=== PATIENT | female | born 1955 | race Caucasian/White ===

== ENCOUNTER → 2017-08-27 15:53 | Outpatient (CLI) | payer OTHER, SELFPAY ==
--- NOTE | 2017-08-27 15:55 | BI_ITS ---
MAMMOGRAPHY - BILATERAL SCREENING REASON FOR EXAM: Female, 61 years old. Routine annual screening examination. PERTINENT HISTORY: Non-contributory. TECHNIQUE: Digital bilateral breast hiren (3D mammographic acquisition) in the CC and MLO projections. 2-D mediolateral oblique (MLO) and craniocaudad (CC) views of both breasts were obtained. CAD: Full Field Digital Mammography with Computer Added Detection was performed. COMPARISON: Comparison is made with prior study dated August 21, 2016 and August 16, 2015. FINDINGS: Breast Composition: The breasts are extremely dense, which lowers the sensitivity of mammography. There are no dominant masses or suspicious calcifications. No other significant abnormalities are identified. There has been no significant change since the prior study. BI/SCREENING MAMM (CAD), BILAT IMPRESSION: Stable bilateral screening mammogram. Yearly follow-up mammogram recommended. (A) ASSESSMENT CATEGORY: BIRADS Category 1: Negative. A letter regarding these results will be sent to the patient by the facility within 30 days. Approximately 10% of breast cancers are not detected by mammography. A normal mammogram should not delay biopsy of a clinically suspicious abnormality. [id number] Electronically Signed: Yan Mata MD at 9:02 EDT Tel [phone], Service support ,
== END ==
PROVIDERS: Family Provider Family Medicine; PCP Family Medicine; Visit Provider Family Medicine
DX: Z12.31 Encounter for screening mammogram for malignant neoplasm of breast (principal)
CPT/HCPCS: 77063; 77067

== ENCOUNTER → 2018-09-19 | Outpatient (CLI) | payer OTHER, SELFPAY ==
[2014-09-07 08:16] VITALS: BMI 17.4
--- NOTE | 2018-09-19 12:03 | BI_ITS ---
MAMMOGRAPHY - BILATERAL SCREENING REASON FOR EXAM: Female, 62 years old. Routine annual screening examination. PERTINENT HISTORY: Non-contributory. TECHNIQUE: Digital bilateral breast hiren (3D mammographic acquisition) in the CC and MLO projections. 2-D mediolateral oblique (MLO) and craniocaudad (CC) views of both breasts were obtained. CAD: Full Field Digital Mammography with Computer Added Detection was performed. COMPARISON: Comparison is made with prior examination dated August 27, 2017 and August 21, 2016. FINDINGS: Breast Composition: The breasts are extremely dense, which lowers the sensitivity of mammography. There are no dominant masses or suspicious calcifications. No other significant abnormalities are identified. There has been no significant change since the prior study. BI/SCREENING MAMM (CAD), BILAT IMPRESSION: Stable bilateral screening mammogram. Yearly follow-up mammogram recommended. (A) ASSESSMENT CATEGORY: BIRADS Category 1: Negative. A letter regarding these results will be sent to the patient by the facility within 30 days. Approximately 10% of breast cancers are not detected by mammography. A normal mammogram should not delay biopsy of a clinically suspicious abnormality. [id number] Electronically Signed: Yan Mata, at 13:49 EDT , Service support ,
== END | disposition home or self-care (01) ==
LOC: OPBI 12:01
PROVIDERS: Family Provider Family Medicine; PCP Family Medicine; Referring Provider Family Medicine; Visit Provider Family Medicine
DX: Z12.31 Encounter for screening mammogram for malignant neoplasm of breast (principal)
CPT/HCPCS: 77063; 77067

== ENCOUNTER → 2018-10-01 | Outpatient (CLI) | payer OTHER, SELFPAY ==
[2014-09-07 08:16] VITALS: BMI 17.4
--- NOTE | 2018-10-01 13:59 | BD_ITS ---
STUDY: DUAL ENERGY X-RAY ABSORPTIOMETRY / DXA REASON FOR EXAM: Female, 62 years old. The patient is postmenopausal. Loss of height. TECHNIQUE: Bone Mineral Density (BMD) measurements of lumbar spine and bilateral hips were obtained. COMPARISON: Comparison is made with prior examination dated February 17, 2016. FINDINGS: Lumbar Spine (L1-L4): g/cm2 (0.849) / T-score (-2.8) / Z-score (-1.5) Findings are suggestive of osteoporosis with a high fracture risk. Left Femur Total: g/cm2 (0.714) / T-score (-2.3) / Z-score (-1.4) Left Femoral Neck: g/cm2 (0.758) / T-score (-2.0) / Z-score (-0.7) Right Femur Total: g/cm2 (0.692) / T-score (-2.5) / Z-score (-1.5) Right Femoral Neck: g/cm2 (0.7-1) / T-score (-2.3) / Z-score (-1.0) The T-Scores on the most recent prior examination were: Lumbar Spine (L1-L4): There has been worsening of bone density since the previous examination. Left Femur Total: which represents a worsening of 5.3%. Right Femur Total: which represents a worsening of 6.6%. BD/Dexa Bone Density Study IMPRESSION: The patient is considered osteoporotic as outlined below according to World Martin Organization (WHO) criteria with a high fracture risk. There has been worsening of bone density since the previous examination. Reference Information: The T-score is the number of standard deviations above or below the standard which is normal for young adults at their peak bone mineral density. The World Health Organization (WHO) interprets the T-scores as follows: Above -1 Normal bone density Between -1 and -2.5 Osteopenia Equal to / or below -2.5 Osteoporosis As a practical clinical guideline, osteopenia may be graded as follows: Mild -1 through -1.5 Moderate -1.6 through -2.0 Severe -2.1 through -2.4 The Z-score is the number of standard deviations above or below age-matched controls. A Z-score of less than -1.5 would be considered abnormal. References: 1. NIH Osteoporosis and Related Bone Diseases http://www.osteo.org 2. International Society for Clinical Densitometry http://www.iscd.org 3. National Osteoporosis Foundation http://www.nof.org Electronically Signed: Yan Mata, at 12:55 EDT , Service support ,
== END | disposition home or self-care (01) ==
LOC: OPBD 13:58
PROVIDERS: Family Provider Family Medicine; PCP Family Medicine; Referring Provider Family Medicine; Visit Provider Family Medicine
DX: M85.80 Other specified disorders of bone density and structure, unspecified site (principal)
CPT/HCPCS: 77080

== ENCOUNTER → 2018-12-02 10:27 | Outpatient (CLI) | payer OTHER, SELFPAY ==
[2014-09-07 08:16] VITALS: BMI 17.4
[2018-12-02 12:32] LABS: Absolute Lymphocyte Count 0.95 X10^3/uL (0.83-4.51); Absolute Neutrophil Count 1.9 X10^3/uL (2.0-7.7); Basophil# 0.05 X10^3/uL; Basophil% 1.5 % (0-1); Eosinophil# 0.11 X10^3/uL; Eosinophils% 3.2 % (0-5); Hematocrit 40.8 % (37-47); Hemoglobin 13.3 g/dL (12.0-15.0); Lymphocyte # 0.95 X10^3/ul (4.0); Lymphocyte % 27.9 % (19-41); Mean Corp Hgb Conc 32.6 g/dL (32-36); Mean Corpuscular Hgb 30.8 pg (27.0-32.0); Mean Corpuscular Volume 94.4 fL (81-99); Mean Platelet Vol. 13.8 fl (6.2-12.0); Monocyte# 0.39 X10^3/uL; Monocyte% 11.4 % (0-10); NRBC Flagged by Analyzer 0 % (0-5); Neutrophil % 55.7 % (47-70); Platelet Count 188 K/mm3 (150-450); RBC Distribution Width CV 12.5 % (11.6-14.6); RBC Distribution Width SD 43.8 fl (35.1-43.9); Red Blood Count 4.32 M/mm3 (4.2-5.4); White Blood Count 3.4 K/mm3 (4.4-11.0)
[2018-12-02 12:53] LABS: ALB/GLOB Ratio 1.1 RATIO (0.9-2.4); AST(SGOT) 29 U/L (15-37); Alanine Aminotransfer ALT/SGPT 65 U/L (13-56); Albumin, Serum 3.9 g/dL (3.2-5.0); Alkaline Phosphatase 77 U/L (45-117); Anion Gap 7 (5-15); BUN 14 mg/dL (7-18); BUN/Creat Ratio 15.6 RATIO (10-20); Calcium,Total 8.7 mg/dL (8.5-10.1); Chloride 108 mmol/L (98-107); Cholesterol 166 mg/dL (200); EST Glomerular Filtration Rate 68 mL/min (>60); Est Glom Filt Rate - Afr Amer 82 mL/min (>60); Globulin 3.4 g/dL (2.2-4.2); Glucose 80 mg/dL (74-106); High Density Lipoprotein 83 mg/dL; Protein, Total 7.3 g/dL (6.4-8.2); Sodium Level 141 mmol/L (136-145); Triglycerides 56 mg/dL; Very Low Density Lipoprotein 11 mg/dL (5-40)
== END ==
PROVIDERS: PCP Family Medicine; Visit Provider Family Medicine
DX: Z00.01 Encounter for general adult medical examination with abnormal findings (principal)
CPT/HCPCS: 36415; 80053; 80061; 85025

== ENCOUNTER 2019-09-22 14:40 | Outpatient (CLI) | payer OTHER, SELFPAY ==
[2014-09-07 08:16] VITALS: BMI 17.4
--- NOTE | 2019-09-22 14:43 | BI_ITS ---
MAMMOGRAPHY - BILATERAL SCREENING REASON FOR EXAM: Female, 63 years old. Routine annual screening examination. PERTINENT HISTORY: Non-contributory. TECHNIQUE: Digital bilateral breast ludy (3D mammographic acquisition) in the CC and MLO projections. 2-D mediolateral oblique (MLO) and craniocaudad (CC) views of both breasts were obtained. CAD: Full Field Digital Mammography with Computer Added Detection was performed. COMPARISON: Comparison is made with prior examination dated September 19, 2018. FINDINGS: Breast Composition: The breasts are extremely dense, which lowers the sensitivity of mammography. There are no dominant masses or suspicious calcifications. No other significant abnormalities are identified. There has been no significant change since the prior study. BI/SCREEN MAMM (CAD) W/LUDY BILAT IMPRESSION: Stable bilateral screening mammogram. Yearly follow-up mammogram recommended. (A) ASSESSMENT CATEGORY: BIRADS Category 1: Negative. A letter regarding these results will be sent to the patient by the facility within 30 days. Approximately 10% of breast cancers are not detected by mammography. A normal mammogram should not delay biopsy of a clinically suspicious abnormality. [id number] Electronically Signed: Yan Mata, at 15:30 EDT , Service support ,
[2019-09-22 15:16] LABS: Absolute Lymphocyte Count 0.96 X10^3/uL (0.83-4.51); Absolute Neutrophil Count 3.1 X10^3/uL (2.0-7.7); Basophil# 0.05 X10^3/uL; Eosinophil# 0.16 X10^3/uL; Eosinophils% 3.3 % (0-5); Hematocrit 42.4 % (37-47); Hemoglobin 13.6 g/dL (12.0-15.0); Lymphocyte # 0.96 X10^3/ul (4.0); Lymphocyte % 20.1 % (19-41); Mean Corp Hgb Conc 32.1 g/dL (32-36); Mean Corpuscular Hgb 30.8 pg (27.0-32.0); Mean Corpuscular Volume 95.9 fL (81-99); Mean Platelet Vol. 13.3 fl (6.2-12.0); Monocyte% 10.5 % (0-10); NRBC Flagged by Analyzer 0 % (0-5); Neutrophil % 64.9 % (47-70); POSITIVE MORPHOLOGY YES; Platelet Count 182 K/mm3 (150-450); RBC Distribution Width CV 12.5 % (11.6-14.6); RBC Distribution Width SD 44.3 fl (35.1-43.9); Red Blood Count 4.42 M/mm3 (4.2-5.4); White Blood Count 4.8 K/mm3 (4.4-11.0)
[2019-09-22 15:21] LABS: Differential Indicated SCAN CRITERIA MET
[2019-09-22 15:53] LABS: Platelet Estimate ADEQUATE (ADEQ); Red Cell Morphology NORM C+C NORMAL (NORM C&C)
[2019-09-22 15:57] LABS: AST(SGOT) 22 U/L (15-37); Alanine Aminotransfer ALT/SGPT 39 U/L (13-56); Alkaline Phosphatase 65 U/L (45-117); Bilirubin, Direct 0.12 mg/dL (0.00-0.30); Globulin 3.7 g/dL (2.2-4.2); Protein, Total 7.7 g/dL (6.4-8.2)
== END 2019-09-22 19:00 | disposition home or self-care (01) ==
PROVIDERS: PCP Family Medicine; Referring Provider Family Medicine; Visit Provider Family Medicine
DX: D72.819 Decreased white blood cell count, unspecified (principal); R74.8 Abnormal levels of other serum enzymes; Z12.31 Encounter for screening mammogram for malignant neoplasm of breast
CPT/HCPCS: 36415; 77063; 77067; 80076; 85025

== ENCOUNTER → 2019-12-08 | Outpatient (CLI) | payer OTHER, SELFPAY ==
[2014-09-07 08:16] VITALS: BMI 17.4
--- NOTE | 2019-12-08 15:10 | RAD_ITS ---
STUDY: X-RAY - LEFT HAND REASON FOR EXAM: Female, 64 years old. RECENT FALL, PAIN 1ST MC JOINT INTO WHOLE 1ST DIGIT AND LATERAL CARPALS TECHNIQUE: 3 view(s) of the hand. COMPARISON: None. FINDINGS: Normal radiocarpal articulation. Normal distal radioulnar joint. Normal visualized carpal bones. Normal carpal articulations Normal carpometacarpal articulation of the thumb. Normal second through fifth carpometacarpal joints. Normal metacarpi. Normal metacarpophalangeal joint of the thumb. Normal interphalangeal joint of the thumb. Normal proximal and distal phalanges of the thumb. Normal metacarpophalangeal joints of the second through fifth fingers. Normal proximal and distal interphalangeal joints of the second through fifth fingers. Normal phalanges of the second through fifth fingers. The soft tissue structures are unremarkable. RAD/Hand Min 3 Views IMPRESSION: Normal x-ray examination of the hand. Electronically Signed: Efren Frank MD at 15:56 EDT , Service support ,
== END | disposition home or self-care (01) ==
LOC: RAD 15:07
PROVIDERS: PCP Family Medicine; Referring Provider Family Medicine; Visit Provider Family Medicine
DX: M79.645 Pain in left finger(s) (principal); M81.0 Age-related osteoporosis without current pathological fracture; W19.XXXA Unspecified fall, initial encounter
CPT/HCPCS: 73130

== ENCOUNTER 2019-12-19 08:48 | Outpatient (RCR) | payer OTHER, SELFPAY ==
--- NOTE | 2019-12-19 10:19 | HP.OTEVAL_ITS ---
Patient's Visit Information PIETER TOLLIVER is a 64 year old F, referred to Occupational Therapy by Dr. Anna Norton MD, with a diagnosis of left thumb pain. Date of Evaluation: 12/19/19 Occupational Therapist: Maddy Bernardo, ALBERTAR/Morgan, CHT - Subjective This 64 year old female was seen for OT eval with dx of left thumb pain. pt states she had fallen in October and has had thumb pain since. pt states she noticed pain with daily occupations and this has limited her with her ADLs and IADLs. pt states she had x-rays and no fx was found - Pain left thumb 1 Pain Intensity Range: 1, 2 - ROM CMC: right 10 left 15 MP: right 50 left 60 IP: right 60 left 90 Radial Abduction: right 45 left 40 Opposition: right 10 left 10 - Strength Terminal Make Up Operator: rigth 55# left 54# Lateral Pinch: right 12# left 12# Tripod Pinch: right 16# left 12# Strength Comments: pt demo with good strength but noted thumb instability with resistance - Quick DASH-Disab of Arm,Shoulder& Hand Quick DASH Score: 13.6350 - Rehabilitation General Assessment: pt demo with slight thumb instability and a decrease knowlage of joint protection. Pt reports pain has been better since she did see the doctor but attended session to ensure she was doing ok. Based on objective measurments and clinical reasoning pt demo with need for joint protection derrell. and thumb stabilization ex. Therapist ed. pt on the excises and joint protection as well gave handouts. pt demo. understanding and agree to call if she has questions or concerns. pt seen for one visit at this time and pt agree. - Anticipated Interventions Home Program - Visit Plan General Plan: at this time pt does not demo a need for skilled OT services at this time. therapist ed. pt on joint protection derrell. and thumb stabilization exercises. pt demo understanding and agree to HEP. TEXT: Thank you for the opportunity to evaluate your patient. For Medicare and Medicare HMO plans, please review the plan of care and approve it. It will need to be FAXED BACK to us at [phone] for Medicare purposes. Please let me know if there are questions or concerns regarding this plan of care. Physician Signature: Date:
--- NOTE | 2020-03-23 13:18 | HP.OTDCSUM ---
It has been my pleasure to treat PIETER TOLLIVER under orders from Dr. Anna Norton MD, for the diagnosis of left thumb pain for a total of 1 visit(s). Please see the following information for a summary of their discharge status. pt was seen for initial Eval only given information on joint protection. pt was given HEP and demo understanding agree to HEP no further apts. If there are questions or concerns regarding this patient's occupational therapy, please fell free to call me at [phone]. Thank you for the referral of this patient. Sincerely, Maddy Bernardo, OTR/L, CHT
== END 2019-12-19 19:00 | disposition home or self-care (01) ==
LOC: OT 08:48
PROVIDERS: PCP Family Medicine; Referring Provider Family Medicine; Visit Provider Family Medicine
DX: M79.645 Pain in left finger(s) (principal)
CPT/HCPCS: 97110; 97166

== ENCOUNTER → 2020-09-27 13:02 | Outpatient (CLI) | payer OTHER, SELFPAY ==
[2020-09-27 15:42] LABS: Absolute Lymphocyte Count 1.02 X10^3/uL (0.83-4.51); Absolute Neutrophil Count 2.6 X10^3/uL (2.0-7.7); Basophil# 0.04 X10^3/uL; Eosinophil# 0.09 X10^3/uL; Eosinophils% 2.2 % (0-5); Hematocrit 41.6 % (37-47); Hemoglobin 13.3 g/dL (12.0-15.0); Lymphocyte # 1.02 X10^3/ul (0.83-4.51); Lymphocyte % 24.8 % (19-41); Mean Corpuscular Hgb 30.4 pg (27.0-32.0); Mean Platelet Vol. 13.5 fl (6.2-12.0); Monocyte% 9.7 % (0-10); NRBC Flagged by Analyzer 0 % (0-5); Neutrophil # 2.56 X10^3/uL (2.7-7.7); Neutrophil % 62.1 % (47-70); Platelet Count 191 K/mm3 (150-450); RBC Distribution Width CV 12.6 % (11.6-14.6); RBC Distribution Width SD 44.5 fl (35.1-43.9); Red Blood Count 4.38 M/mm3 (4.2-5.4); White Blood Count 4.1 K/mm3 (4.4-11.0)
[2020-09-27 16:42] LABS: ALB/GLOB Ratio 1.2 RATIO (0.9-2.4); AST(SGOT) 16 U/L (15-37); Alanine Aminotransfer ALT/SGPT 23 U/L (13-56); Albumin, Serum 4.2 g/dL (3.2-5.0); Alkaline Phosphatase 59 U/L (45-117); Anion Gap 7 (5-15); BUN 14 mg/dL (7-18); BUN/Creat Ratio 17.9 RATIO (10-20); Chloride 101 mmol/L (98-107); Cholesterol 192 mg/dL (200); Creatinine, Serum 0.78 mg/dL (0.55-1.02); EST Glomerular Filtration Rate 79 mL/min (>60); Est Glom Filt Rate - Afr Amer 96 mL/min (>60); Globulin 3.5 g/dL (2.2-4.2); Glucose 84 mg/dL (74-106); High Density Lipoprotein 99 mg/dL; Potassium 3.9 mmol/L (3.5-5.1); Protein, Total 7.7 g/dL (6.4-8.2); Sodium Level 137 mmol/L (136-145); Triglycerides 64 mg/dL; Very Low Density Lipoprotein 13 mg/dL (5-40)
== END ==
PROVIDERS: PCP Family Medicine; Referring Provider Family Medicine; Visit Provider Family Medicine
DX: Z00.00 Encounter for general adult medical examination without abnormal findings (principal); M81.0 Age-related osteoporosis without current pathological fracture; G43.909 Migraine, unspecified, not intractable, without status migrainosus; F34.1 Dysthymic disorder
CPT/HCPCS: 36415; 80053; 80061; 85025

== ENCOUNTER → 2020-10-14 14:31 | Outpatient (CLI) | payer OTHER, SELFPAY ==
[2014-09-07 08:16] VITALS: BMI 17.4
--- NOTE | 2020-10-14 14:34 | BD_ITS ---
STUDY: DUAL ENERGY X-RAY ABSORPTIOMETRY / DXA REASON FOR EXAM: Female, 65 years old. [id number]. The patient is postmenopausal. Loss of height. TECHNIQUE: Bone Mineral Density (BMD) measurements of lumbar spine and bilateral hips were obtained. COMPARISON: Comparison is made with prior study dated 10/01/2018. FINDINGS: Lumbar Spine (L1-L4): g/cm2 (0.926) / T-score (-2.1) / Z-score (-0.7) Findings are suggestive of osteopenia with a high fracture risk. Left Femur Total: g/cm2 (0.714) / T-score (-2.3) / Z-score (-1.3) Left Femoral Neck: g/cm2 (0.789) / T-score (-1.8) / Z-score (-0.4) Right Femur Total: g/cm2 (0.682) / T-score (-2.6) / Z-score (-1.5) Right Femoral Neck: g/cm2 (0.752) / T-score (-2.1) / Z-score (-0.7) The T-Scores on the most recent prior examination were: Lumbar Spine (L1-L4): There has been improvement of bone density since the previous examination. Left Femur Total: which represents no significant change. . Right Femur Total: which represents a worsening of 1.4%. BD/Dexa Bone Density Study IMPRESSION: The patient is considered osteoporotic as outlined below according to World Martin Organization (WHO) criteria with a high fracture risk. There has been worsening of bone density since the previous examination. Reference Information: The T-score is the number of standard deviations above or below the standard which is normal for young adults at their peak bone mineral density. The World Health Organization (WHO) interprets the T-scores as follows: Above -1 Normal bone density Between -1 and -2.5 Osteopenia Equal to / or below -2.5 Osteoporosis As a practical clinical guideline, osteopenia may be graded as follows: Mild -1 through -1.5 Moderate -1.6 through -2.0 Severe -2.1 through -2.4 The Z-score is the number of standard deviations above or below age-matched controls. A Z-score of less than -1.5 would be considered abnormal. References: 1. NIH Osteoporosis and Related Bone Diseases www osteo.org 2. International Society for Clinical Densitometry www iscd.org 3. National Osteoporosis Foundation www nof.org Electronically Signed: Yan Mata MD at 8:45 EDT , Service support ,
--- NOTE | 2020-10-14 14:34 | BI_ITS ---
MAMMOGRAPHY - BILATERAL SCREENING 3-D TOMOSYNTHESIS REASON FOR EXAM: Female, 65 years old. SCREENING PERTINENT HISTORY: No significant family history. TECHNIQUE: 2-D mammograms and 3-D Tomosynthesis of the breast (s) were performed. CAD was performed. COMPARISON: 09/22/2019 FINDINGS: The breast composition is (mean increased density that no evidence the sensitivity of mammography No dense spiculated masses or suspicious microcalcifications are identified. No architectural distortion is identified. There is no skin thickening or nipple retraction. There has been no significant change since the prior study 09/22/2019. BI/SCRN MAMM (CAD)W/LUDY BILAT IMPRESSION: No mammographic signs of malignancy. Routine yearly mammograms recommended. ASSESSMENT CATEGORY: BIRADS Category 1: Negative. A letter regarding these results will be sent to the patient by the facility within 30 days. FOLLOW UP RECOMMENDATION: Yearly follow up mammogram recommended. (A) Approximately 10% of breast cancers are not detected by mammography. A normal mammogram should not delay biopsy of a clinically suspicious abnormality. Electronically Signed: Mark Sánchez, at 13:28 EDT Tel , Service support ,
== END ==
PROVIDERS: PCP Family Medicine; Referring Provider Family Medicine; Visit Provider Family Medicine
DX: M81.0 Age-related osteoporosis without current pathological fracture (principal); Z12.31 Encounter for screening mammogram for malignant neoplasm of breast
CPT/HCPCS: 77063; 77067; 77080

== ENCOUNTER → 2021-09-23 | Outpatient (CLI) | payer OTHER, SELFPAY ==
[2021-09-28 13:15] LABS: Age Gdln ACOG Testing 30-65 (.)
[2021-09-28 21:03] LABS: HPV APTIMA, High Risk Negative (Negative); HPV Reflexed? YES, CHARGE PATIENT
== END | disposition home or self-care (01) ==
PROVIDERS: PCP Family Medicine; Visit Provider Family Medicine
DX: Z12.4 Encounter for screening for malignant neoplasm of cervix (principal)
CPT/HCPCS: 87624; 88175; G0145

== ENCOUNTER → 2021-10-18 | Outpatient (CLI) | payer OTHER, SELFPAY ==
--- NOTE | 2021-10-18 15:19 | BI_ITS ---
MAMMOGRAPHY - BILATERAL SCREENING REASON FOR EXAM: Female, 66 years old. Routine annual screening examination. PERTINENT HISTORY: Non-contributory. TECHNIQUE: Digital bilateral breast ludy (3D mammographic acquisition) in the CC and MLO projections. 2-D mediolateral oblique (MLO) and craniocaudad (CC) views of both breasts were obtained. CAD: Full Field Digital Mammography with Computer Added Detection was performed. COMPARISON: Comparison is made with prior study dated 10/14/2020 and 09/22/2019. FINDINGS: Breast Composition: The breasts are extremely dense, which lowers the sensitivity of mammography. There are no dominant masses or suspicious calcifications. No other significant abnormalities are identified. There has been no significant change since the prior study. BI/SCRN MAMM (CAD)W/LUDY BILAT IMPRESSION: Stable bilateral screening mammogram. Yearly follow-up mammogram recommended. (A) ASSESSMENT CATEGORY: BIRADS Category 1: Negative. A letter regarding these results will be sent to the patient by the facility within 30 days. Approximately 10% of breast cancers are not detected by mammography. A normal mammogram should not delay biopsy of a clinically suspicious abnormality. [id number] Electronically Signed: Yan Mata MD at 8:18 EDT ,
== END | disposition home or self-care (01) ==
LOC: OPBI 15:18
PROVIDERS: PCP Family Medicine; Visit Provider Family Medicine
DX: Z12.31 Encounter for screening mammogram for malignant neoplasm of breast (principal)
CPT/HCPCS: 77063; 77067

== ENCOUNTER → 2022-10-16 | Outpatient (CLI) | payer MEDICARE, OTHER, SELFPAY ==
[2022-10-16 18:04] LABS: Absolute Lymphocyte Count 1.33 X10^3/uL (0.83-4.51); Absolute Neutrophil Count 2.7 X10^3/uL (2.0-7.7); Basophil# 0.06 X10^3/uL; Basophil% 1.3 % (0-1); Eosinophil# 0.17 X10^3/uL; Eosinophils% 3.6 % (0-5); Hematocrit 40.7 % (37-47); Hemoglobin 13.2 g/dL (12.0-15.0); Lymphocyte # 1.33 X10^3/ul (0.83-4.51); Lymphocyte % 28.1 % (19-41); Mean Corp Hgb Conc 32.4 g/dL (32-36); Mean Corpuscular Hgb 30.6 pg (27.0-32.0); Mean Corpuscular Volume 94.4 fL (81-99); Mean Platelet Vol. 13.2 fl (6.2-12.0); Monocyte# 0.42 X10^3/uL; Monocyte% 8.9 % (0-10); NRBC Flagged by Analyzer 0 % (0-5); Neutrophil # 2.74 X10^3/uL (2.7-7.7); Neutrophil % 57.9 % (47-70); Platelet Count 182 K/mm3 (150-450); RBC Distribution Width CV 12.7 % (11.6-14.6); RBC Distribution Width SD 44.1 fl (35.1-43.9); Red Blood Count 4.31 M/mm3 (4.2-5.4); White Blood Count 4.7 K/mm3 (4.4-11.0)
[2022-10-16 18:51] LABS: Anion Gap 5 (5-15); BUN 15 mg/dL (7-18); BUN/Creat Ratio 18.2 RATIO (10-20); Calcium,Total 9.2 mg/dL (8.5-10.1); Chloride 101 mmol/L (98-107); Creatinine, Serum 0.82 mg/dL (0.55-1.02); EST Glomerular Filtration Rate 74 mL/min (>60); Est Glom Filt Rate - Afr Amer 90 mL/min (>60); Glucose 90 mg/dL (74-106); Potassium 3.5 mmol/L (3.5-5.1); Sodium Level 138 mmol/L (136-145); Thyroid Stim Hormone (TSH) 0.84 uIU/mL (0.358-3.74)
[2022-10-16 19:20] LABS: Hepatitis C Antibody Non-Reactive (Nonreactive); Vitamin D,25 Hydroxy 68.2 ng/mL
== END | disposition home or self-care (01) ==
LOC: MTLAB 14:43
PROVIDERS: PCP Family Medicine; Referring Provider Family Medicine; Visit Provider Family Medicine
DX: E11.59 Type 2 diabetes mellitus with other circulatory complications (principal); M81.0 Age-related osteoporosis without current pathological fracture; K59.00 Constipation, unspecified; R53.83 Other fatigue; E55.9 Vitamin D deficiency, unspecified
CPT/HCPCS: 36415; 80048; 82306; 84443; 85025; 86803

== ENCOUNTER → 2022-11-16 | Outpatient (CLI) | payer MEDICARE, OTHER, SELFPAY ==
--- NOTE | 2022-11-16 13:16 | BI_ITS ---
MAMMOGRAPHY - BILATERAL SCREENING REASON FOR EXAM: Female, 67 years old. Routine annual screening examination. PERTINENT HISTORY: Non-contributory. TECHNIQUE: Digital bilateral breast ludy (3D mammographic acquisition) in the CC and MLO projections. 2-D mediolateral oblique (MLO) and craniocaudad (CC) views of both breasts were obtained. CAD: Full Field Digital Mammography with Computer Added Detection was performed. COMPARISON: Comparison is made with prior study dated October 18, 2021 and October 14, 2020. FINDINGS: Breast Composition: The breasts are extremely dense, which lowers the sensitivity of mammography. There are no dominant masses or suspicious calcifications. No other significant abnormalities are identified. There has been no significant change since the prior study. BI/SCRN MAMM (CAD)W/LUDY BILAT IMPRESSION: Stable bilateral screening mammogram. Yearly follow-up mammogram recommended. (A) ASSESSMENT CATEGORY: BIRADS Category 1: Negative. A letter regarding these results will be sent to the patient by the facility within 30 days. Approximately 10% of breast cancers are not detected by mammography. A normal mammogram should not delay biopsy of a clinically suspicious abnormality. [id number] Electronically Signed: Yan Mata MD at 14:23 EDT ,
--- NOTE | 2022-11-16 13:23 | BD_ITS ---
STUDY: DUAL ENERGY X-RAY ABSORPTIOMETRY / DXA REASON FOR EXAM: Female, 67 years old. [id number] TECHNIQUE: Bone Mineral Density (BMD) measurements of lumbar spine and bilateral hips were obtained. COMPARISON: Comparison is made with prior study dated October 14, 2020. FINDINGS: Lumbar Spine (L1-L4): g/cm2 (0.790) / T-score (-2.3) / Z-score (-0.6) Findings are suggestive of osteopenia with a high fracture risk. Left Femur Total: g/cm2 (0.665) / T-score (-2.3) / Z-score (-1.0) Left Femoral Neck: g/cm2 (0.672) / T-score (-1.6) / Z-score (-0.1) Right Femur Total: g/cm2 (0.648) / T-score (-2.4) / Z-score (-1.2) Right Femoral Neck: g/cm2 (0.599) / T-score (-2.3) / Z-score (-0.7) The T-Scores on the most recent prior examination were: Lumbar Spine (L1-L4): There has been worsening of bone density since the previous examination. Left Femur Total: which represents an improvement of 1.3%. Right Femur Total: which represents an improvement of 3.6%. BD/Dexa Bone Density Study IMPRESSION: The patient is considered osteopenic as outlined below according to World Martin Organization (WHO) criteria with a high fracture risk. There has been improvement of bone density since the previous examination. Reference Information: The T-score is the number of standard deviations above or below the standard which is normal for young adults at their peak bone mineral density. The World Health Organization (WHO) interprets the T-scores as follows: Above -1 Normal bone density Between -1 and -2.5 Osteopenia Equal to / or below -2.5 Osteoporosis As a practical clinical guideline, osteopenia may be graded as follows: Mild -1 through -1.5 Moderate -1.6 through -2.0 Severe -2.1 through -2.4 The Z-score is the number of standard deviations above or below age-matched controls. A Z-score of less than -1.5 would be considered abnormal. References: 1. NIH Osteoporosis and Related Bone Diseases www osteo.org 2. International Society for Clinical Densitometry www iscd.org 3. National Osteoporosis Foundation www nof.org Electronically Signed: Yan Mata MD at 12:51 EDT ,
== END | disposition home or self-care (01) ==
LOC: OPBD 13:14
PROVIDERS: PCP Family Medicine; Referring Provider Family Medicine; Visit Provider Family Medicine
DX: Z12.31 Encounter for screening mammogram for malignant neoplasm of breast (principal); M81.0 Age-related osteoporosis without current pathological fracture
CPT/HCPCS: 77063; 77067; 77080

== ENCOUNTER → 2023-06-12 | Outpatient (CLI) | payer MEDICARE, OTHER, SELFPAY ==
--- NOTE | 2023-06-12 11:22 | MRI_ITS ---
STUDY: BILATERAL BREAST MR WITHOUT AND WITH CONTRAST REASON FOR EXAM: Female, 67 years old. Dense breasts. First cousin with breast cancer at about age 45. TECHNIQUE: Multi-sequence multi-echo imaging of both breasts was performed with a dedicated breast coil. T1-weighted and T2-weighted images were performed before the administration of contrast. T1-weighted images were also performed after the intravenous administration of 10 cc of Clariscan contrast. COMPARISON: Bilateral mammograms dated 10/18/2021, 10/14/2020, 09/22/2019, 09/19/2018 and 08/27/2017. FINDINGS: RIGHT BREAST: Dense fibroglandular tissue with mild background enhancement. No abnormal enhancing masses or areas of non-mass enhancement in the right breast. LEFT BREAST: Dense fibroglandular tissue with mild background enhancement. No abnormal enhancing masses or areas of non-mass enhancement in the right breast. No enlarged or abnormal lymph nodes. No abnormality in the visualized regions of the chest or liver. MRI/Breast Bilateral W/O and W IMPRESSION: Dense fibroglandular tissue with mild background enhancement. No other abnormality. Alternating bilateral diagnostic mammography with bilateral breast MRI with contrast would be appropriate for further screening purposes. CATEGORY: BIRADS Category 2: Benign. A letter regarding these results will be sent to the patient by the facility within 30 days. Electronically Signed: Jayy Ortiz MD at 15:24 EST ,
--- OUTSIDE RECORDS SUMMARY | 2023-06-12 11:41 | XMS RPT_ITS | CCD ---
Author Name Unknown Address [address] [facility] [address] [place] [address] Organization [facility] Care Team Providers Care Data Processing Mechanic Name Role Phone Cierra COATES, Anna Garza Primary Care Provider Medications Completed/Discontinued Medications Medication Drug Class(es) Dates Sig (Normalized) Sig (Original) calcium, elemental, tab (1 source) Start: 06-30-2013 take 1 tablet by mouth twice daily calcium, elemental, tab Take 1 tablet by mouth twice daily. 0 06/30/2013 Active Problems Problem Classification Problem Date Documented Da te Episodic/Chronic Headache; including migraine (1 source) Migraine without aura; Translations: [Migraine without aura, not intractable, without status migrainosus] Onset: 06-22-2013 06-22-2013 Chronic Other bone disease and musculoskeletal deformities (1 source) Osteopenia; Translations: [Other specified disorders of bone density and structure, unspecified site] 08-20-2013 Episodic Other upper respiratory infections (1 source) Sore throat symptom; Translations: [Acute pharyngitis, unspecified] 02-27-2023 Episodic Results Test Name Value Interpretation Reference Range Facil ity Vital Signs Date Time Vital Sign Value Performing Clinician Priyanka flanagan 02-27-2023 14:28-0500 Body temperature 98.6 [degF] Gutierrez Munson APRN.RONY Work Phone: [facility] 02-27-2023 14:28-050 Body weight 48.53 kg Gutierrez Munson APRN.CNP Work Phone: [facility] 02-27-2023 14:28-0500 Diastolic blood pressure 73 mm[Hg] Gutierrez Munson APRN.CNP Work Phone: [facility] 02-27-2023 14:28-0500 Heart rate 79 /min Gutierrez Munson APRN.TIRE MOLDER Work Phone: [facility] 02-27-2023 14:28-0500 Respiratory rate 18 /min Gutierrez Munson APRN.TIRE MOLDER Work Phone: [facility] 02-27-2023 14:28-0500 SaO2% (BldA) [Mass fraction] 100 % Gutierrez Munson MONUMENT MASON.TIRE MOLDER Work Phone: [facility] 02-27-2023 14:28-0500 Systolic blood pressure 114 mm[Hg] Gutierrez Munson MONUMENT MASON.TIRE MOLDER Work Phone: [facility] Encounters Encounter Date Encounter Type Care Provider Facility Start: 02-27-2023 End: 02-27-2023 ambulatory ANNA HARDIN Facility:[facility] Start: 02-27-2023 End: 02-27-2023 Office outpatient visit 15 minutes Gutierrez Munson APRN.TIRE MOLDER Work Phone: [facility] Procedures Date Procedure Procedure Detail Performing Clinician Start: 02-27-2023 STREP A MOLECULAR (POC) Gutierrez Munson APRN.TIRE MOLDER Work Phone: Start: 09-04-2014 Colonoscopy Gutierrez del angel APRN.TIRE MOLDER Work Phone: Start: 08-23-2011 Lipid 1996 panel - S [place] or Plasma Gutierrez Munson MONUMENT MASON.TIRE MOLDER Work Phone: Plan of Treatment Date Care Activity Detail Author Start: 02-02-2027 Urine microalbumin profile DTa P,Tdap,Td Vaccine (2 - Td or Tdap) [facility] Start: 09-04-2024 Colonoscopy Colonoscopy [facility] Start: 09-04-2024 Colorectal Cancer Screening Colorectal Cancer Screening [facility] Start: 12-22-2022 Influenza vaccination Influenza Vacc ine (#1) [facility] Start: 2022 Advance Directive Discussion Advance Directive Discussion [facility] Start: 2022 Bone Density Screening Bone Density Screening [facility] Start: 04-23-2022 Depression Assessment Depression Ass essment [facility] Start: 2017 RSV Vaccine (1 - 1-d ose 60+ series) RSV Vaccine (1 - 1-dose 60+ series) [facility] Start: 08-21-2017 Mammography Mammogram Screening [facility] Start: 08-22-2016 Lipid 1996 panel - S whitney or Plasma Lipid Screening [facility] Start: 06-30-2016 Diabetes Screening Diabetes Screenin g [facility] Start: 10-14-2007 Shingrix Vaccine (1 of 2) Shingrix V accine (1 of 2) [facility] Start: 2002 Cologuard (FIT-DNA) Cologuard (FIT-D NA) [facility] Start: [address] Colonography [facility] Start: 2002 Fecal Occult Blood Fecal Occult Bloo d [facility] Start: 2002 Sigmoidoscopy Sigmoidoscopy [facility] Start: 10-14-1975 Hepatitis C Screening Hepatitis C Sc reening [facility] Start: 10-14-1975 HIV Screening HIV Screening [facility] Immunizations Immunization Date Immunization Notes Care Provider Gifty cleveland 02-17-2022 influenza virus vacc ine, unspecified formulation Gutierrez Pendlebury MONUMENT MASON.TIRE MOLDER Work Phone: [facility] 02-02-2017 influenza, injectabl e, quadrivalent, contains preservative Gutierrez Pendlebury MONUMENT MASON.TIRE MOLDER Work Phone: [facility] 02-02-2017 tetanus toxoid, redu chang diphtheria toxoid, and acellular pertussis vaccine, adsorbed Gutierrez Pendlebury MONUMENT MASON.TIRE MOLDER Work Phone: [facility] 01-22-2016 influenza, seasonal, injectable Gutierrez Pendlebury MONUMENT MASON.TIRE MOLDER Work Phone: [facility] 01-21-2011 influenza virus vacc ine, unspecified formulation Gutierrez Pendlebury MONUMENT MASON.TIRE MOLDER Work Phone: [facility] 11-21-2007 hepatitis B vaccine, adult dosage Gutierrez Pendlebury MONUMENT MASON.TIRE MOLDER Work Phone: [facility] 06-27-2007 hepatitis B vaccine, adult dosage Gutierrez Pendlebury MONUMENT MASON.TIRE MOLDER Work Phone: [facility] 05-09-2007 hepatitis B vaccine, adult dosage Gutierrez Munson MONUMENT MASON.TIRE MOLDER Work Phone: [facility] 05-09-2007 meningococcal polysaccharide vaccine (MPSV4) Gutierrez Munson MONUMENT MASON.TIRE MOLDER Work Phone: [facility] 05-09-2007 yellow fever vaccine Gutierrez Munson MONUMENT MASON.TIRE MOLDER Work Phone: [facility] 05-21-2006 diphtheria antitoxin Gutierrez Munson MONUMENT MASON.TIRE MOLDER Work Phone: [facility] 05-21-2006 tetanus and diphther ia toxoids, adsorbed, preservative free, for adult use (2 Lf of tetanus toxoid and 2 Lf of diphtheria toxoid) Gutierrez Munson MONUMENT MASON.TIRE MOLDER Work Phone: [facility] 10-27-1999 hepatitis A vaccine, unspecified formulation Gutierrez Munson MONUMENT MASON.TIRE MOLDER Work Phone: [facility] 12-22-1998 hepatitis A vaccine, unspecified formulation Gutierrez Munson MONUMENT MASON.TIRE MOLDER Work Phone: [facility] 06-08-1997 diphtheria antitoxin Gutierrez Munson MONUMENT MASON.TIRE MOLDER Work Phone: [facility] 06-08-1997 tetanus and diphther ia toxoids, adsorbed, preservative free, for adult use (2 Lf of tetanus toxoid and 2 Lf of diphtheria toxoid) Gutierrez Munson MONUMENT MASON.TIRE MOLDER Work Phone: [facility] 02-24-1988 diphtheria antitoxin Gutierrez Munson MONUMENT MASON.TIRE MOLDER Work Phone: [facility] 02-24-1988 tetanus and diphther ia toxoids, adsorbed, preservative free, for adult use (2 Lf of tetanus toxoid and 2 Lf of diphtheria toxoid) Gutierrez Munson MONUMENT MASON.TIRE MOLDER Work Phone: [facility] Payers Date Payer Category Payer Medicare MEDICARE MEDICAR E A AND B [id number] 2022-[facility] [phone] [place] [address] Medicare [id number] 2022 Medicare [id number] 2022 Private Health Insurance [facility] AARP SUPPLEMENT [id number] 2022-Present [phone] [address] [place] [address] Indemnity [id number] 2022 Unknown [id number] Social History Date Type Detail Facility Start: 05-27-2013 Tobacco smoking stat [facility] Never smoked tobacco [facility] Start: 02-27-2023 Alcohol intake Current non-dr blood bank coordinator of alcohol (finding) [facility] Start: 02-27-2023 History of Social function [facility] Start: 02-27-2023 Tobacco use panel [facility] Start: 1955 [facility]igned [facility] note 02-27-2023 Note Date & Type Note Facility 02-27-2023 Note HNO ID: [id number] Author: Gutierrez Munson APRN.TIRE MOLDER Service: ? Author Type: Nurse Practitioner Type: Progress Notes Filed: 02/27/2023 2:48 PM Note Text: Subjective HPI Nontoxic-appearing female presents urgent care chief complaint sore throat nasal congestion. Patient states last night she did have a low-grade temperature. Highest recorded temp 100. Most bothersome symptom today is pharyngitis. No known sick contacts. No OTC medication use recently. Patient states she was diagnosed with COVID February 10 of this year. She did have about a week where she was symptom free before the symptoms started. The symptoms feel new. Denies any difficulty swallowing his secretions decreased range of motion of neck. Denies any high fevers productive cough chest pain shortness of breath nausea vomiting abdominal pain change in bowel or bladder habits. Past medical history prescription medications allergies reviewed. .Patient presents with: Sore Throat: X 4 days, congestion, fever last night PAST MEDICAL HISTORY Diagnosis Date Migraine headache without aura 06/22/2013 Osteopenia PAST SURGICAL HISTORY Procedure Laterality Date PAST SURGICAL HISTORY OF Carmi tooth extraction ALLERGIES Patient has no known allergies. MEDICATIONS topiramate (TOPAMAX) 50 mg tablet Take 1 tablet by mouth once daily. imipramine HCl (TOFRANIL) 50 mg tablet Take 1 tablet by mouth daily at bedtime. ZOLMitriptan (ZOMIG) 2.5 mg tablet Take 1 tablet by mouth as needed. May repeat after 2 hours as needed Cholecalciferol, Vitamin D3, 1,000 unit cap Take 1,000 Units by mouth once daily. calcium, elemental, tab Take 1 tablet by mouth twice daily. FAMILY HISTORY Problem Relation Age of Onset Heart Mother HTN Cancer Mother skin--SCC Heart Father 5 vessel CABG at age 82 Skin Cancer Brother SCC Skin Cancer Sister BCC Cancer Maternal Uncle Skin cancer--Melanoma Cancer Maternal Uncle Skin--2 uncles with SCC Cancer Maternal Grandfather Skin--not sure BCC or SCC Stroke Maternal Grandfather Heart Maternal Grandmother Heart attack (after age 60) Ischemic Heart Disease Maternal Uncle CABG twice (first time in 40s) Ischemic Heart Disease Maternal Uncle PTCA in late 70's Social History Tobacco Use Smoking status: Never Substance Use Topics Alcohol use: No BP 114/73 Pulse 79 Temp 37 ?C (98.6 ?F) Resp 18 Wt 48.5 kg (107 lb) SpO2 100% BMI 17.27 kg/m? Review of Systems Constitutional: Positive for fever. Negative for chills and malaise/fatigue. HENT: Positive for congestion and sore throat. Negative for ear discharge, ear pain and sinus pain. Eyes: Negative for blurred vision, pain, discharge and redness. Respiratory: Negative for cough, hemoptysis, sputum production, shortness of breath, wheezing and stridor. Cardiovascular: Negative for chest pain. Gastrointestinal: Negative for abdominal pain, diarrhea, nausea and vomiting. Musculoskeletal: Negative for myalgias. Skin: Negative for itching and rash. Neurological: Negative for dizziness and headaches. Objective Physical Exam Constitutional: General: She is not in acute distress. Appearance: She is not diaphoretic. HENT: Head: Normocephalic. Jaw: No trismus, tenderness, swelling or pain on movement. Nose: Congestion present. Mouth/Throat: Mouth: Mucous membranes are moist. Pharynx: Oropharynx is clear. Uvula midline. No pharyngeal swelling, oropharyngeal exudate, posterior oropharyngeal erythema or uvula swelling. Eyes: Conjunctiva/sclera: Conjunctivae normal. Pupils: Pupils are equal, round, and reactive to light. Cardiovascular: Rate and Rhythm: Normal rate and regular rhythm. Heart sounds: Normal heart sounds. Pulmonary: Effort: Pulmonary effort is normal. No tachypnea, accessory muscle usage or respiratory distress. Breath sounds: Normal breath sounds. No stridor. No wheezing, rhonchi or rales. Abdominal: General: There is no distension. Palpations: Abdomen is soft. Tenderness: There is no abdominal tenderness. There is no guarding or rebound. Musculoskeletal: Cervical back: Normal range of motion and neck supple. No edema, erythema, rigidity or tenderness. No pain with movement. Normal range of motion. Lymphadenopathy: Cervical: No cervical adenopathy. Skin: General: Skin is warm and dry. Neurological: Mental Status: She is alert and oriented to person, place, and time. ASSESSMENT/PLAN: 1. Sore throat - ICD9: 462, ICD10: J02.9 - STREP A MOLECULAR (POC) Strep test was negative. Diagnosed with viral pharyngitis. Suspicious of viral etiology. No evidence of bacterial infection. Treat conservatively. Patient was educated on supportive therapies. Patient will follow up with primary care provider as needed. Patient was instructed to immediately proceed to emergency room for any new, worsening, or symptoms lasting longer than anticipated. The pat (more content not included)... [facility] History of Present illness Narrative 02-27-2023 Gutierrez Munson APRN.[facility] - 02/27/2023 2:33 PM EST Note Date & Type Note Facility 02-27-2023 History of Presen t illness Narrative Subjective HPI Nontoxic-appearing female presents urgent care chief complaint sore throat nasal congestion. Patient states last night she did have a low-grade temperature. Highest recorded temp 100. Most bothersome symptom today is pharyngitis. No known sick contacts. No OTC medication use recently. Patient states she was diagnosed with COVID February 10 of this year. She did have about a week where she was symptom free before the symptoms started. The symptoms feel new. Denies any difficulty swallowing his secretions decreased range of motion of neck. Denies any high fevers productive cough chest pain shortness of breath nausea vomiting abdominal pain change in bowel or bladder habits. Past medical history prescription medications allergies reviewed. .Patient presents with: Sore Throat: X 4 days, congestion, fever last night PAST MEDICAL HISTORY Diagnosis Date Migraine headache without aura 06/22/2013 Osteopenia PAST SURGICAL HISTORY Procedure Laterality Date PAST SURGICAL HISTORY OF Carmi tooth extraction ALLERGIES Patient has no known allergies. MEDICATIONS topiramate (TOPAMAX) 50 mg tablet Take 1 tablet by mouth once daily. imipramine HCl (TOFRANIL) 50 mg tablet Take 1 tablet by mouth daily at bedtime. ZOLMitriptan (ZOMIG) 2.5 mg tablet Take 1 tablet by mouth as needed. May repeat after 2 hours as needed Cholecalciferol, Vitamin D3, 1,000 unit cap Take 1,000 Units by mouth once daily. calcium, elemental, tab Take 1 tablet by mouth twice daily. FAMILY HISTORY Problem Relation Age of Onset Heart Mother HTN Cancer Mother skin--SCC Heart Father 5 vessel CABG at age 82 Skin Cancer Brother SCC Skin Cancer Sister BCC Cancer Maternal Uncle Skin cancer--Melanoma Cancer Maternal Uncle Skin--2 uncles with SCC Cancer Maternal Grandfather Skin--not sure BCC or SCC Stroke Maternal Grandfather Heart Maternal Grandmother Heart attack (after age 60) Ischemic Heart Disease Maternal Uncle CABG twice (first time in 40s) Ischemic Heart Disease Maternal Uncle PTCA in late 70's Social History Tobacco Use Smoking status: Never Substance Use Topics Alcohol use: No BP 114/73 Pulse 79 Temp 37 C (98.6 F) Resp 18 Wt 48.5 kg (107 lb) SpO2 100% BMI 17.27 kg/m Review of Systems Constitutional: Positive for fever. Negative for chills and malaise/fatigue. HENT: Positive for congestion and sore throat. Negative for ear discharge, ear pain and sinus pain. Eyes: Negative for blurred vision, pain, discharge and redness. Respiratory: Negative for cough, hemoptysis, sputum production, shortness of breath, wheezing and stridor. Cardiovascular: Negative for chest pain. Gastrointestinal: Negative for abdominal pain, diarrhea, nausea and vomiting. Musculoskeletal: Negative for myalgias. Skin: Negative for itching and rash. Neurological: Negative for dizziness and headaches. Objective Physical Exam Constitutional: General: She is not in acute distress. Appearance: She is not diaphoretic. HENT: Head: Normocephalic. Jaw: No trismus, tenderness, swelling or pain on movement. Nose: Congestion present. Mouth/Throat: Mouth: Mucous membranes are moist. Pharynx: Oropharynx is clear. Uvula midline. No pharyngeal swelling, oropharyngeal exudate, posterior oropharyngeal erythema or uvula swelling. Eyes: Conjunctiva/sclera: Conjunctivae normal. Pupils: Pupils are equal, round, and reactive to light. Cardiovascular: Rate and Rhythm: Normal rate and regular rhythm. Heart sounds: Normal heart sounds. Pulmonary: Effort: Pulmonary effort is normal. No tachypnea, accessory muscle usage or respiratory distress. Breath sounds: Normal breath sounds. No stridor. No wheezing, rhonchi or rales. Abdominal: General: There is no distension. Palpations: Abdomen is soft. Tenderness: There is no abdominal tenderness. There is no guarding or rebound. Musculoskeletal: Cervical back: Normal range of motion and neck supple. No edema, erythema, rigidity or tenderness. No pain with movement. Normal range of motion. Lymphadenopathy: Cervical: No cervical adenopathy. Skin: General: Skin is warm and dry. Neurological: Mental Status: She is alert and oriented to person, place, and time. ASSESSMENT/PLAN: 1. Sore throat - ICD9: 462, ICD10: J02.9 - STREP A MOLECULAR (POC) Strep test was negative. Diagnosed with viral pharyngitis. Suspicious of viral etiology. No evidence of bacterial infection. Treat conservatively. Patient was educated on supportive therapies. Patient will follow up with primary care provider as needed. Patient was instructed to immediately proceed to emergency room for any new, worsening, or symptoms lasting longer than anticipated. The patient's clinical presentation is otherwise unremarkable at this time. Based on exam and clinical finding, the patient is stable for discharge. Plan of care was discussed with patient. Patient verbalizes understanding and agrees to plan of care. This note was generated using [employer] software. It may contain errors in wording, punctuation, or spelling. Gutierrez Munson APRN.TIRE MOLDER documented in this encounter [facility] Evaluation note Note Date & Type Note Facility documented in this encounter [facility] Summary Purpose Family History No Family History Records Found Advance Directives No Advanced Directives Records Found Additional Source Comments Source Comments (unrecognize d section and content) In the event this informatio n is protected by the Federal Confidentiality of Alcohol and Drug Abuse Patient Records regulations: The Federal rules restrict any use of the information to criminally investigate or prosecute any alcohol or drug abuse patient.[facility] Reason for Visit (unrecogniz ed section and content) Care Teams (unrecognized sec tion and content) INFORMATION SOURCE (unrecogn ized section and content) FOR RECORDS PERTAINING TO PATIENTS WHO ARE OR HAVE BEEN ENROLLED IN A CHEMICAL DEPENDENCY/SUBSTANCEABUSE PROGRAM, SOME INFORMATION MAY BE OMITTED. This clinical summary was aggregated from multiple sources. Caution should be exercised in using it in the provision of clinical care. This summary normalizes information from multiple sources, and as a consequence, information in this document may materially change the coding, format and clinical context of patient data. In addition, data may be omitted in some cases. CLINICAL DECISIONS SHOULD BE BASED ON THE PRIMARY CLINICAL RECORDS. [employer] provides no warranty or guarantee of the accuracy or completeness of information in this document.
[2023-06-12 12:05] LABS: CREATININE FINGERSTICK < 1.0 mg/dL (0.55-1.02); EGFR FINGERSTICK > 60.0000 mL/min (>60)
== END | disposition home or self-care (01) ==
LOC: MRI 11:04
PROVIDERS: PCP Family Medicine; Referring Provider Family Medicine; Visit Provider Family Medicine
DX: Z12.31 Encounter for screening mammogram for malignant neoplasm of breast (principal); R92.8 Other abnormal and inconclusive findings on diagnostic imaging of breast; R92.30 Dense breasts, unspecified
CPT/HCPCS: 77049; A9575; A4216; C8908

== ENCOUNTER → 2023-11-05 | Outpatient (CLI) | payer MEDICARE, OTHER, SELFPAY ==
[2023-11-05 15:27] LABS: Absolute Lymphocyte Count 0.85 X10^3/uL (0.83-4.51); Absolute Neutrophil Count 2.3 X10^3/uL (2.0-7.7); Basophil# 0.05 X10^3/uL; Basophil% 1.3 % (0-1); Eosinophil# 0.09 X10^3/uL; Eosinophils% 2.4 % (0-5); Hemoglobin 12.9 g/dL (12.0-15.0); Lymphocyte # 0.85 X10^3/ul (0.83-4.51); Lymphocyte % 22.7 % (19-41); Mean Corp Hgb Conc 32.3 g/dL (32-36); Mean Corpuscular Hgb 30.8 pg (27.0-32.0); Mean Corpuscular Volume 95.5 fL (81-99); Mean Platelet Vol. 13.3 fl (6.2-12.0); Monocyte# 0.44 X10^3/uL; Monocyte% 11.8 % (0-10); NRBC Flagged by Analyzer 0 % (0-5); Neutrophil % 61.5 % (47-70); Platelet Count 190 K/mm3 (150-450); RBC Distribution Width CV 12.9 % (11.6-14.6); RBC Distribution Width SD 45.2 fl (35.1-43.9); Red Blood Count 4.19 M/mm3 (4.2-5.4); White Blood Count 3.7 K/mm3 (4.4-11.0)
[2023-11-05 15:39] LABS: Vitamin D,25 Hydroxy 47.4 ng/mL
[2023-11-05 16:08] LABS: Anion Gap 7 (5-15); BUN 15 mg/dL (7-18); BUN/Creat Ratio 20.7 RATIO (10-20); Calcium,Total 9.1 mg/dL (8.5-10.1); Chloride 102 mmol/L (98-107); Cholesterol 180 mg/dL (200); Creatinine, Serum 0.72 mg/dL (0.55-1.02); EST Glomerular Filtration Rate 86 mL/min (>60); Est Glom Filt Rate - Afr Amer 104 mL/min (>60); Glucose 76 mg/dL (74-106); High Density Lipoprotein 86 mg/dL; Potassium 4.1 mmol/L (3.5-5.1); Sodium Level 136 mmol/L (136-145); Triglycerides 52 mg/dL; Very Low Density Lipoprotein 10 mg/dL (5-40)
== END | disposition home or self-care (01) ==
LOC: BFHLAB 13:05
PROVIDERS: PCP Family Medicine; Referring Provider Family Medicine; Visit Provider Family Medicine
DX: M81.0 Age-related osteoporosis without current pathological fracture (principal); K59.00 Constipation, unspecified; R53.83 Other fatigue; E55.9 Vitamin D deficiency, unspecified
CPT/HCPCS: 36415; 80048; 80061; 82306; 84443; 85025

== ENCOUNTER → 2023-11-19 | Outpatient (CLI) | payer MEDICARE, OTHER, SELFPAY ==
--- NOTE | 2023-11-19 15:49 | BI_ITS ---
MAMMOGRAPHY - BILATERAL SCREENING REASON FOR EXAM: Female, 68 years old. Routine annual screening examination. PERTINENT HISTORY: Non-contributory. TECHNIQUE: Digital bilateral breast ludy (3D mammographic acquisition) in the CC and MLO projections. 2-D mediolateral oblique (MLO) and craniocaudad (CC) views of both breasts were obtained. CAD: Full Field Digital Mammography with Computer Added Detection was performed. COMPARISON: Comparison is made with prior study November 16, 2022 and October 18, 2021. FINDINGS: Breast Composition: The breasts are extremely dense, which lowers the sensitivity of mammography. There are no dominant masses or suspicious calcifications. No other significant abnormalities are identified. There has been no significant change since the prior study. BI/SCRN MAMM (CAD)W/LUDY BILAT IMPRESSION: Stable bilateral screening mammogram. Yearly follow-up mammogram recommended. (A) ASSESSMENT CATEGORY: BIRADS Category 1: Negative. A letter regarding these results will be sent to the patient by the facility within 30 days. Approximately 10% of breast cancers are not detected by mammography. A normal mammogram should not delay biopsy of a clinically suspicious abnormality. [id number] Electronically Signed: Yan Mata MD at 8:30 EDT ,
== END | disposition home or self-care (01) ==
LOC: OPBI 15:47
PROVIDERS: PCP Family Medicine; Referring Provider Family Medicine; Visit Provider Family Medicine
DX: Z12.31 Encounter for screening mammogram for malignant neoplasm of breast (principal)
CPT/HCPCS: 77063; 77067

== ENCOUNTER → 2024-06-27 | Outpatient (CLI) | payer MEDICARE, OTHER, SELFPAY ==
--- NOTE | 2024-06-27 13:45 | MRI_ITS ---
PROCEDURE: BREAST BILATERAL W/O AND W REASON FOR EXAM: Dense breast tissue. TECHNIQUE: Bilateral breast MRI using a dedicated bilateral breast coil before and following intravenous contrast. Images reviewed with subtraction and iFlipdaCAD. CONTRAST: 100 CC clariscan IV COMPARISON: Mammogram study dated 11/19/2023. FINDINGS: Amount of Fibroglandular Tissue: Extreme fibroglandular tissue. Background Parenchymal Enhancement: Minimal RIGHT Breast: No suspicious mass or non-mass enhancement. A large amount of fibroglandular tissue is noted throughout the breast. LEFT Breast: No suspicious mass or non-mass enhancement. A large amount of fibroglandular tissue is noted throughout the breast. Other Findings: No suspicious axillary or internal mammary lymph nodes. Visualized portions of the thoracic and abdominal viscera are unremarkable. MRI/Breast Bilateral W/O and W IMPRESSION: Unremarkable breast MRI examination. OVERALL BI-RADS CATEGORY: BI-RADS 1: NEGATIVE Reading Location: [id number]
== END | disposition home or self-care (01) ==
LOC: MRI 13:15
PROVIDERS: PCP Family Medicine; Referring Provider Family Medicine; Visit Provider Family Medicine
DX: R92.8 Other abnormal and inconclusive findings on diagnostic imaging of breast (principal); R92.30 Dense breasts, unspecified
CPT/HCPCS: 77049; A9575; A4216; C8908

== ENCOUNTER → 2024-11-21 | Outpatient (CLI) | payer MEDICARE, OTHER, SELFPAY ==
[2024-11-21 12:24] LABS: Hematocrit 40.2 % (37-47); Hemoglobin 13.0 g/dL (12.0-15.0); Immature Granulocytes Count 0.010 X10^3/uL (0.0-0.0); Mean Corp Hgb Conc 32.3 g/dL (32-36); Mean Corpuscular Volume 94.4 fL (81-99); Mean Platelet Vol. 13.7 fl (6.2-12.0); NRBC Flagged by Analyzer 0 % (0-5); Platelet Count 181 K/mm3 (150-450); RBC Distribution Width CV 13.2 % (11.6-14.6); RBC Distribution Width SD 45.2 fl (35.1-43.9); Red Blood Count 4.26 M/mm3 (4.2-5.4); White Blood Count 3.5 K/mm3 (4.4-11.0)
--- OUTSIDE RECORDS SUMMARY | 2024-11-21 12:24 | XMS RPT_ITS | CCD ---
Author Organization [facility] Care Team Providers Care Underwriting Clerk Name Role Phone Anna Norton MD Primary Care Provider Anna Norton Attending Unavailable Anna Norton Referring Unavailable Anna Norton Primary Care Unavailable Anna Norton Attending Unavailable Anna Norton Referring Unavailable Anna Norton Primary Care Unavailable Anna Norton Attending Unavailable Anna Norton Referring Unavailable Anna Norton Primary Care Unavailable Cierra COATES, Dr. Castillo Primary Care Provider Dr. Anna Norton MD Attending Provider [phone] Dr. Anna Norton MD Referring Provider Medications Current Medications Medication Drug Class(es) Dates Sig (Normalized) Sig (Original) calcium carbonate 1500 mg oral tablet (4 sources) Start: 09-07-2014 take 2 tablets by mouth once daily Calcium Carbonate 600 MG tablet Active 1200 mg PO DAILY September 07, 2014 12:00am Start: 09-07-2014 take 1200 mg by mouth once derrick ly Calcium Carbonate Active 1200 MG PO DAILY September 06, 2014 11:00pm cholecalciferol 0.05 mg oral tablet (5 sources) Vitamin D Start: 09-07-2014 Cholecalcifero l (Vitamin D3) (Vitamin D) 1,000 UNIT tablet Active 1000 U PO DAILY September 07, 2014 12:00am take 1 capsule by mouth once derrick ly Cholecalciferol, Vitamin D3, 1,000 unit cap Take 1,000 Units by mouth once daily. 0 Active Comment on above: Take 1,000 Units by mouth once daily. ZOLMitriptan 2.5 mg oral tablet (5 sources) Serotonin-1b and Serotonin-1d Receptor Agonist Start: 09-07-2014 Zolmitriptan (Zomig) 2.5 MG tablet Active 2.5 mg PO .X1 PRN September 07, 2014 12:00am Comment on above: Take 1 tablet by geeta th as needed. May repeat after 2 hours as needed Completed/Discontinued Medications Medication Drug Class(es) Dates Sig (Normalized) Sig (Original) calcium, elemental, tab (1 source) Start: 06-30-2013 take 1 tablet by mouth twice daily calcium, elemental, tab Take 1 tablet by mouth twice daily. 0 06/30/2013 Active Comment on above: Take 1 tablet by geeta th twice daily. imipramine hydrochloride 50 mg oral tablet (5 sources) Tricyclic Antidepressant Start: 02-02-2017 take 1 tablet by mouth once daily at bedtime imipramine HCl (TOFRANIL) 50 mg tablet Indications: Migraine without aura and without status migrainosus, not intractable Take 1 tablet by mouth daily at bedtime. 180 tablet 3 02/02/2017 Active Start: 09-07-2014 Imipramine Hcl (Tofranil) 50 MG tablet Active 100 mg PO AT BEDTIME September 07, 2014 12:00am Comment on above: Take 1 tablet by geeta th daily at bedtime. topiramate 50 mg oral tablet (5 sources) Start: 02-08-2017 take 1 tablet by mouth once daily topiramate (TOPAMAX) 50 mg tablet Indications: Migraine without aura and without status migrainosus, not intractable Take 1 tablet by mouth once daily. 90 tablet 3 02/08/2017 Active Start: 09-07-2014 Topiramate 25 MG tablet Active 25 mg DAILY September 07, 2014 12:00am Comment on above: Take 1 tablet by geeta th once daily. Problems Problem Classification Problem Date Documented Da te Episodic/Chronic Headache; including migraine (1 source) Migraine without aura; Translations: [Migraine without aura, not intractable, without status migrainosus] Onset: 06-22-2013 06-22-2013 Chronic Osteoporosis (1 source) Age-related osteoporosis without current pathological fracture; Translations: [Age-related osteoporosis without current pathological fracture] Onset: 11-19-2023 Chronic Other bone disease and musculoskeletal deformities (1 source) Osteopenia; Translations: [Other specified disorders of bone density and structure, unspecified site] 08-20-2013 Episodic Other screening for suspected conditions (not mental disorders or infectious disease) (2 sources) Other abnormal and inconclusive findings on diagnostic imaging of breast; Translations: [Encounter for screening mammogram for malignant neoplasm of breast] Onset: 12-11-2023 Episodic Other upper respiratory infections (1 source) Sore throat symptom; Translations: [Acute pharyngitis, unspecified] 02-27-2023 Episodic Results Test Name Value Interpretation Reference Range Facility Magnetic resonance imaging r eportOrdered By: Holly Galaviz on 07-08-2024 Study report [facility] Imaging Services [address] [place] [address] Breast Bilateral W/O and W MR#: [id number] Acct: [id number] Name: PIETER TOLLIVER Rep #: [id number] : 1955 F 68 From: Andrea Galaviz DO PCP: Dr. Anna Norton MD Status: REG CLI Study:Breast Bilateral W/O and W Date of Exam : 06/27/24 Exam# [id number] Ordering Dr: Tomas Norton MD PROCEDURE: BREAST BILATERAL W/O AND W REASON FOR EXAM: Dense breast tissue. TECHNIQUE: Bilateral breast MRI using a dedicated bilateral breast coil before and following intravenous contrast. Images reviewed with subtraction and DynaCAD. CONTRAST: 100 CC clariscan IV COMPARISON: Mammogram study dated 11/19/2023. FINDINGS: Amount of Fibroglandular Tissue: Extreme fibroglandular tissue. Background Parenchymal Enhancement: Minimal RIGHT Breast: No suspicious mass or non-mass enhancement. A large amount of fibroglandular tissue is noted throughout the breast. LEFT Breast: No suspicious mass or non-mass enhancement. A large amount of fibroglandular tissue is noted throughout the breast. Other Findings: No suspicious axillary or internal mammary lymph nodes. Visualized portions of the thoracic and abdominal viscera are unremarkable. MRI/Breast Bilateral W/O and W IMPRESSION: Unremarkable breast MRI examination. OVERALL BI-RADS CATEGORY: BI-RADS 1: NEGATIVE Reading Location: [id number] CC: Dr. Anna Norton MD ~ Commissioned Sales Associate: Signed [facility] Breast Bilateral W/O and Won 06-27-2024 Breast Bilateral W/O and W [facility] Imaging Services [address] [place] [address] Breast Bilateral W/O and W MR#: [id number] Acct: [id number] Name: PIETER TOLLIVER Rep #: [id number] : 1955 F 68 From: Holly Woodruff PCP: Dr. Anna Norton MD Status: REG CLI Study: Breast Bilateral W/O and W Date of Exam: 06/27 Exam# [id number] Ordering Dr: Anna Norton MD PROCEDURE: BREAST BILATERAL W/O AND W REASON FOR EXAM: Dense breast tissue. TECHNIQUE: Bilateral breast MRI using a dedicated bilateral breast coil before and following intravenous contrast. Images reviewed with subtraction and DynaCAD. CONTRAST: 100 CC clariscan IV COMPARISON: Mammogram study dated 11/19/2023. FINDINGS: Amount of Fibroglandular Tissue: Extreme fibroglandular tissue. Background Parenchymal Enhancement: Minimal RIGHT Breast: No suspicious mass or non-mass enhancement. A large amount of fibroglandular tissue is noted throughout the breast. LEFT Breast: No suspicious mass or non-mass enhancement. A large amount of fibroglandular tissue is noted throughout the breast. Other Findings: No suspicious axillary or internal mammary lymph nodes. Visualized portions of the thoracic and abdominal viscera are unremarkable. MRI/Breast Bilateral W/O and W IMPRESSION: Unremarkable breast MRI examination. OVERALL BI-RADS CATEGORY: BI-RADS 1: NEGATIVE Reading Location: [id number] CC: Dr. Anna Norton MD Commissioned Sales Associate: Signed Normal [facility] SCRN MAMM (CAD)W/LUDY BILATo n 11-19-2023 SCRN MAMM (CAD)W/LUDY BILAT [facility] Imaging Services [address] [address] SCRN MAMM (CAD)W/LUDY BILAT MR#: [id number] Acct: [id number] Name: PIETER TOLLIVER Rep #: [id number] : 1955 F 68 From: aYn hilario MD PCP: Dr. Anna Norton MD Status: [facility] Study: SCRN MAMM (CAD)W/LUDY BILAT Date of Exam: 10/22 01/14 Exam# [id number] Ordering Dr: Anna Norton MD [id number] MAMMOGRAPHY - BILATERAL SCREENING REASON FOR EXAM: Female, 68 years old. Routine annual screening examination. PERTINENT HISTORY: Non-contributory. TECHNIQUE: Digital bilateral breast ludy (3D mammographic acquisition) in the CC and MLO projections. 2-D mediolateral oblique (MLO) and craniocaudad (CC) views of both breasts were obtained. CAD: Full Field Digital Mammography with Computer Added Detection was performed. COMPARISON: Comparison is made with prior study November 16, 2022 and October 18, 2021. FINDINGS: Breast Composition: The breasts are extremely dense, which lowers the sensitivity of mammography. There are no dominant masses or suspicious calcifications. No other significant abnormalities are identified. There has been no significant change since the prior study. BI/SCRN MAMM (CAD)W/LUDY BILAT IMPRESSION: Stable bilateral screening mammogram. Yearly follow-up mammogram recommended. (A) ASSESSMENT CATEGORY: BIRADS Category 1: Negative. A letter regarding these results will be sent to the patient by the facility within 30 days. Approximately 10% of breast cancers are not detected by mammography. A normal mammogram should not delay biopsy of a clinically suspicious abnormality. [id number] Electronically Signed: Yan Mata MD at 8:30 EDT , CC: Dr. Anna Norton MD Commissioned Sales Associate: Signed Normal [facility] Basic Metabolic Profile (BMP )on 11-05-2023 BUN/CRE 20.7 RATIO High 10-20 [facility] Comment on above: Performed By: #### L 500.2500, L100.0100, L506.1000, L500.4100, L501.9520 #### [facility] Laboratory [address] [place], [address] CA,Total 9.1 mg/dL Normal 8.5-10.1 [facility] Comment on above: Performed By: #### L 500.2500, L100.0100, L506.1000, L500.4100, L501.9520 #### [facility] [address] [place], [address] Chloride [Moles/Vol] 102 mmol/L Normal 98-107 [facility] Comment on above: Performed By: #### L 500.2500, L100.0100, L506.1000, L500.4100, L501.9520 #### [facility] [address] [place], [address] CO2 [Moles/Vol] 27.0 mmol/L Normal 21.0-32.0 [facility] Comment on above: Performed By: #### L 500.2500, L100.0100, L506.1000, L500.4100, L501.9520 #### [facility] [address] [place], [address] Creatinine [Mass/Vol] 0.72 mg/dL Normal 0.55-1.02 [facility] Comment on above: Result Comment: The validity of the calculated GFR GFRAA in patients over 70 years has not been determined. Clinical correlation is essential. Performed By: #### L 500.2500, L100.0100, L506.1000, L500.4100, L501.9520 #### [facility] [address] [place], [address] EST GFR - AA 104 mL/min Normal >60 [facility] Comment on above: Result Comment: Afri can Turk[place] GFR Calc Performed By: #### L 500.2500, L100.0100, L506.1000, L500.4100, L501.9520 #### [facility] [address] [place], [address] GAP 7 Normal 5-15 [facility] Comment on above: Performed By: #### L 500.2500, L100.0100, L506.1000, L500.4100, L501.9520 #### [facility] [address] [place], [address] GFR/1.73 sq M.predicted among non-blacks MDRD (S/P/Bld) [Vol rate/Area] 86 mL/min/{1.73_m2} Normal >60 [facility] Comment on above: Result Comment: Non- GFR Calc Performed By: #### L 500.2500, L100.0100, L506.1000, L500.4100, L501.9520 #### [facility] [address] [place], [address] Glucose [Mass/Vol] 76 mg/dL Normal 74-106 [facility] Comment on above: Performed By: #### L 500.2500, L100.0100, L506.1000, L500.4100, L501.9520 #### [facility] [address] [place], [address] Potassium [Moles/Vol] 4.1 mmol/L Normal 3.5-5.1 [facility] Comment on above: Performed By: #### L 500.2500, L100.0100, L506.1000, L500.4100, L501.9520 #### [facility] [address] [place], [address] Sodium [Moles/Vol] 136 mmol/L Normal 136-145 [facility] Comment on above: Performed By: #### L 500.2500, L100.0100, L506.1000, L500.4100, L501.9520 #### [facility] [address] [place], [address] Urea nitrogen [Mass/Vol] 15 mg/dL Normal 7-18 [facility] Comment on above: Performed By: #### L 500.2500, L100.0100, L506.1000, L500.4100, L501.9520 #### [facility] [address] [place], [address] CBC W/Diff, Automatedon 07-2023 Absolute Lymph 0.85 X10 3/uL Normal 0.83-4.51 [facility] Comment on above: Performed By: #### L 500.2500, L100.0100, L506.1000, L500.4100, L501.9520 #### [facility] [address] [place], [address] Absolute Neut 2.3 X10 3/uL Normal 2.0-7.7 [facility] Comment on above: Performed By: #### L 500.2500, L100.0100, L506.1000, L500.4100, L501.9520 #### [facility] [address] [place], [address] Basophils/100 WBC (Bld) 1.3 % High 0-1 [facility] Comment on above: Performed By: #### L 500.2500, L100.0100, L506.1000, L500.4100, L501.9520 #### [facility] [address] [place], [address] Eosinophils/100 WBC (Bld) 2.4 % Normal 0-5 [facility] Comment on above: Performed By: #### L 500.2500, L100.0100, L506.1000, L500.4100, L501.9520 #### [facility] [address] [place], [address] Erythrocyte distribution width (RBC) [Ratio] 12.9 % Normal 11.6-14.6 [facility] Comment on above: Performed By: #### L 500.2500, L100.0100, L506.1000, L500.4100, L501.9520 #### [facility] [address] [place], [address] Hematocrit (Bld) [Volume fraction] 40.0 % Normal 37-47 [facility] Comment on above: Performed By: #### L 500.2500, L100.0100, L506.1000, L500.4100, L501.9520 #### [facility] [address] [place], [address] Hemoglobin (Bld) [Mass/Vol] 12.9 g/dL Normal 12.0-15.0 [facility] Comment on above: Performed By: #### L 500.2500, L100.0100, L506.1000, L500.4100, L501.9520 #### [facility] [address] [place], [address] IG% 0.300 Normal 0.0-0.9 [facility] Comment on above: Result Comment: IG% - Immature Granulocytes (promyelocytes, myelocytes and metamyelocytes) > 1% indicates that a LEFT SHIFT is Present. Performed By: #### L 500.2500, L100.0100, L506.1000, L500.4100, L501.9520 #### [facility] [address] [place], [address] Lymphocytes/100 WBC (Bld) 22.7 % Normal 19-41 [facility] Comment on above: Performed By: #### L 500.2500, L100.0100, L506.1000, L500.4100, L501.9520 #### [facility] [address], [address] MCH (RBC) [Entitic mass] 30.8 pg Normal 27.0-32.0 [facility] Comment on above: Performed By: #### L 500.2500, L100.0100, L506.1000, L500.4100, L501.9520 #### [facility] [address] [place], [address] MCHC (RBC) [Mass/Vol] 32.3 g/dL Normal 32-36 [facility] Comment on above: Performed By: #### L 500.2500, L100.0100, L506.1000, L500.4100, L501.9520 #### [facility] [address], [address] MCV (RBC) [Entitic vol] 95.5 fL Normal 81-99 [facility] Comment on above: Performed By: #### L 500.2500, L100.0100, L506.1000, L500.4100, L501.9520 #### [facility] [address], [address] Monocytes/100 WBC (Bld) 11.8 % High 0-10 [facility] Comment on above: Performed By: #### L 500.2500, L100.0100, L506.1000, L500.4100, L501.9520 #### [facility] [address] [place], [address] Neutrophils/100 WBC (Bld) 61.5 % Normal 47-70 [facility] Comment on above: Performed By: #### L 500.2500, L100.0100, L506.1000, L500.4100, L501.9520 #### [facility] [address] [place], [address] Nucleated RBC (Bld) [#/Vol] 0 10*3/uL Normal 0-5 [facility] Comment on above: Performed By: #### L 500.2500, L100.0100, L506.1000, L500.4100, L501.9520 #### [facility] [address] [place], [address] Platelet mean volume (Bld) [Entitic vol] 13.3 fL High 6.2-12.0 [facility] Comment on above: Performed By: #### L 500.2500, L100.0100, L506.1000, L500.4100, L501.9520 #### [facility] [address] [place], [address] Platelets (Bld) [#/Vol] 190 10*3/uL Normal 150-450 [facility] Comment on above: Performed By: #### L 500.2500, L100.0100, L506.1000, L500.4100, L501.9520 #### [facility] [address] [place], [address] RBC (Bld) [#/Vol] 4.19 10*6/uL Low 4.2-5.4 [facility] Comment on above: Performed By: #### L 500.2500, L100.0100, L506.1000, L500.4100, L501.9520 #### [facility] [address] [place], [address] RDW SD 45.2 fl High 35.1-43.9 [facility] Comment on above: Performed By: #### L 500.2500, L100.0100, L506.1000, L500.4100, L501.9520 #### [facility] [address] [place], [address] WBC (Bld) [#/Vol] 3.7 10*3/uL Low 4.4-11.0 [facility] Comment on above: Performed By: #### L 500.2500, L100.0100, L506.1000, L500.4100, L501.9520 #### [facility] [address] [place], [address] Lipid Profileon 11-05-2023 Cholesterol [Mass/Vol] 180 mg/dL Normal [address] [facility] Comment on above: Result Comment: <200 mg/dL Desirable 200-240 mg/dL Borderline >240 mg/dL High Risk Performed By: #### L 500.2500, L100.0100, L506.1000, L500.4100, L501.9520 #### [facility] [address] [place], [address] Cholesterol in HDL [Mass/Vol] 86 mg/dL Normal [facility] Comment on above: Result Comment: The drugs N-Acetylcysteine and Metamizole may falsely depress this assay. Reference Range HDL <40 mg/dL Low HDL Cholesterol HDL >or= 60 mg/dL High HDL Cholesterol Performed By: #### L 500.2500, L100.0100, L506.1000, L500.4100, L501.9520 #### [facility] [address] [place], [address] Cholesterol in LDL [Mass/Vol] 84 mg/dL Normal 0-130 [facility] Comment on above: Performed By: #### L 500.2500, L100.0100, L506.1000, L500.4100, L501.9520 #### [facility] [address] [place], [address] Cholesterol in VLDL [Mass/Vol] 10 mg/dL Normal 5-40 [facility] Comment on above: Performed By: #### L 500.2500, L100.0100, L506.1000, L500.4100, L501.9520 #### [facility] [address] [place], [address] Triglyceride [Mass/Vol] 52 mg/dL Normal [facility] Comment on above: Result Comment: The drugs N-Acetylcysteine and Metamizole may falsely depress this assay. Serum Triglycerides Reference Interval Normal <150 mg/dL Borderline high 150 - 199 mg/dL High 200 - 499 mg/dL Very High > or = 500 mg/dL Performed By: #### L 500.2500, L100.0100, L506.1000, L500.4100, L501.9520 #### [facility] [address] [place], [address] Thyroid Stim Hormone (TSH)on 11-05-2023 TSH 0.80 uIU/mL Normal 0.358-3.74 [facility] Comment on above: Performed By: #### L 500.2500, L100.0100, L506.1000, L500.4100, L501.9520 #### [facility] [address] [place], [address] Vitamin D,25 Hydroxyon 11-04 Vitamin D 25-OH 47.4 ng/mL Normal [facility] Comment on above: Result Comment: Joanna min D 25(OH) Status Range Deficiency <20 ng/mL (50nmol/L) Insufficiency 20 - 30 ng/mL (50 - 75 nmol/L) Sufficiency 30 - 100 ng/mL (75 - 250 nmol/L) Toxicity >100 ng/mL (>250 nmol/L) Performed By: #### L 500.2500, L100.0100, L506.1000, L500.4100, L501.9520 #### [facility] [address] [place], [address] Basophil percentageOrdered B y: Anna Norton on 06-12-2023 Basophil percentage < 1.0 mg/dL 0.55-1.02 [facility] No Panel InformationOrdered By: Anna Norton on 06-12-2023 Bedside Estimated GFR (eGFR) > 60.0000 mL/min >60 [facility] CNOVon 02-27-2023 CNOV Office Visit (UCWSTR ) SHAREEPIETER ([id number]) 1955 F Date Time Provider Department 02/27/23 2:30 PM [facility] During your visit today, we recorded the following information about you: Temperature Pulse Respiration Blood pressure 98.6 degrees 79/minute 18/minute 114/73 Weight 48.5 kg Vince Munson, ISMAEL.PERSONAL CARE ASSISTANT 02/27/2023 2:48 PM Signed Subjective HPI Nontoxic-appearing female presents urgent care [...] Procedure Laterality Date PAST SURGICAL HISTORY OF [place] tooth extraction ALLERGIES Patient has no known [...] of viral etiology. No evidence of bacterial infec (more content not included)... Normal [facility] STREP A MOLECULAR (POC)on Procedural Control Valid [facility] Strep A (POCT) Negative Negative [facility] Cervical or vagninal specime n microscopic examination by cytology stain (reported ason 09-23-2021 Cytology report Cyto stain Doc (Cvx/Vag) Comment . [facility] Work Phone: Comment on above: The Pap smear is a s creening test designed to aid in thedetection of premalignant and malignant conditions of theuterine cervix. It is not a diagnostic procedure andshould not be used as the sole means of detecting cervicalcancer. Both false-positive and false-negative reports dooccur. Laboratory - Cytologyon [employer] Cyto stain Nom (Cvx/Vag) [ID] Comment . [facility] Work Phone: Comment on above: Mia Coffman hnologist (ASCP) Laboratory - Miscellaneous t estson 09-23-2021 Service comment (Unsp spec) [Interp] Comment . [facility] Work Phone: Comment on above: This liquid based Th inPrep(R) pap test was screened withthe use of an image guided system. Service comment (Unsp spec) [Interp] . . [facility] Work Phone: No Panel Informationon 09-23 Pap Smear Additional Comments 30-65 . [facility] Work Phone: Pathology report final diagnosis Narrative Comment . [facility] Work Phone: Comment on above: NEGATIVE FOR INTRAEP ITHELIAL LESION OR MALIGNANCY. Vital Signs Date Time Vital Sign Value Performing Clinician Priyanka flanagan 02-27-2023 14:28-0500 Body temperature 98.6 [degF] [facility] OPERATOR.PERSONAL CARE ASSISTANT Work Phone: [facility] 02-27-2023 14:28-0500 Body weight 48.53 kg [facility] DTP OPERATOR.PERSONAL CARE ASSISTANT Work Phone: [facility] 02-27-2023 14:28-0500 Diastolic blood pressure 73 mm[Hg] Vince [facility] DTP OPERATOR.PERSONAL CARE ASSISTANT Work Phone: [facility] 02-27-2023 14:28-0500 Heart rate 79 /min Vince [facility] DTP OPERATOR.PERSONAL CARE ASSISTANT Work Phone: [facility] 02-27-2023 14:28-0500 Respiratory rate 18 /min Vince [facility] DTP OPERATOR.PERSONAL CARE ASSISTANT Work Phone: [facility] 02-27-2023 14:28-0500 SaO2% (BldA) [Mass fraction] 100 % Vince [facility] DTP OPERATOR.PERSONAL CARE ASSISTANT Work Phone: [facility] 02-27-2023 14:28-0500 Systolic blood pressure 114 mm[Hg] Vince [facility] DTP OPERATOR.PERSONAL CARE ASSISTANT Work Phone: [facility] Encounters Encounter Date Encounter Type Care Provider Facility Start: 06-27-2024 End: 06-27-[address] Anna Norton MD Work Phone: [facility] Work Phone: Start: 06-27-2024 End: 06-27-[address] Anna Norton MD -[facility] Work Phone: Start: 06-27-2024 End: 06-27-2024 ambulatory Anna Norton Facility:[facility] Start: 11-19-2023 End: 11-19-2023 ambulatory Anna Norton Facility:[facility] Start: 11-05-2023 End: 11-05-2023 ambulatory [facility] Facility:[facility] Start: 06-12-2023 End: 06-12-2023 ambulatory [facility] Work Phone: Start: 06-12-2023 End: 06-12-2023 Patient encounter procedure [facility]-MRI - [facility] Work Phone: Start: 02-27-2023 End: 02-27-2023 [facility] Start: 02-27-2023 End: 02-27-2023 Office outpatient visit 15 minutes Vince Munson APRN.CNP Work Phone: [facility] Comment on above: Sore throat (Primary Dx) Start: 10-18-2021 End: 10-18-2021 Patient encounter procedure [facility]-Outpatient Breast Imaging Start: 09-23-2021 End: 09-23-2021 Patient encounter procedure [facility]-Laboratory, Specimen Procedures Date Procedure Procedure Detail Performing Clinician Start: 06-27-2024 MRI of bilateral jennifer asts with contrast Dr. Anna Norton MD Work Phone: Start: 06-12-2023 MRI of bilateral jennifer asts with contrast Start: 02-27-2023 STREP A MOLECULAR (POC) Vince Munson APRN.CNP Work Phone: Start: 10-18-2021 Screening mammography Start: 09-04-2014 Colonoscopy Vince del angel APRN.CNP Work Phone: Start: 08-23-2011 Lipid 1996 panel - S [place] or Plasma Vince Munson APRN.CNP Work Phone: Plan of Treatment Date Care Activity Detail Author Start: 02-02-2027 Urine microalbumin profile DTaP,Tdap,Td Vaccine (2 - Td or Tdap) [facility] Start: 09-04-2024 Colonoscopy Colonoscopy [facility] Start: 09-04-2024 Colorectal Cancer Screening Colorectal Cancer Screening [facility] Start: 12-22-2022 Influenza vaccination Influenza Vaccine (#1) [place] [facility] Start: 2022 Advance Directive Discussion Advance Directive Discussion [facility] Start: 2022 Bone Density Screening Bone Density Screening [facility] Start: 04-23-2022 Depression Assessment Depression Assessment [facility] Start: 2017 RSV Vaccine (1 - 1-dose 60+ series) RSV Vaccine (1 - 1-dose 60+ series) [facility] Start: 08-21-2017 Mammography Mammogram Screening [facility] Start: 08-22-2016 Lipid 1996 panel - Serum or Plasma Lipid Screening [facility] Start: 06-30-2016 Diabetes Screening Diabetes Screening [facility] Start: 10-14-2007 Shingrix Vaccine (1 of 2) Shingrix Vaccine (1 of 2) [facility] Start: 2002 Cologuard (FIT-DNA) Cologuard (FIT-DNA) [facility] Start: [address] Colonography [facility] Start: 2002 Fecal Occult Blood Fecal Occult Blood [facility] Start: 2002 Sigmoidoscopy Sigmoidoscopy [facility] Start: 10-14-1975 Hepatitis C Screening Hepatitis C Screening [facility] Start: 10-14-1975 HIV Screening HIV Screening [facility] Patient referral [facility] Work Phone: Immunizations Immunization Date Immunization Notes Care Provider Gifty [place] 02-17-2022 influenza virus vacc ine, unspecified formulation Vince Munson DTP OPERATOR.PERSONAL CARE ASSISTANT Work Phone: [facility] 02-02-2017 influenza, injectabl e, quadrivalent, contains preservative Vince Munson DTP OPERATOR.PERSONAL CARE ASSISTANT Work Phone: [facility] 02-02-2017 tetanus toxoid, redu chang diphtheria toxoid, and acellular pertussis vaccine, adsorbed Vince Munson DTP OPERATOR.PERSONAL CARE ASSISTANT Work Phone: [facility] 01-22-2016 influenza, seasonal, injectable Vince Munson DTP OPERATOR.PERSONAL CARE ASSISTANT Work Phone: [facility] 01-21-2011 influenza virus vacc ine, unspecified formulation Vince Munson DTP OPERATOR.PERSONAL CARE ASSISTANT Work Phone: [facility] 11-21-2007 hepatitis B vaccine, adult dosage Vincetayo Orozcoroz DTP OPERATOR.PERSONAL CARE ASSISTANT Work Phone: [facility] 06-27-2007 hepatitis B vaccine, adult dosage Vincetayo Orozcoroz DTP OPERATOR.PERSONAL CARE ASSISTANT Work Phone: [facility] 05-09-2007 hepatitis B vaccine, adult dosage Vince Orozcoroz DTP OPERATOR.PERSONAL CARE ASSISTANT Work Phone: [facility] 05-09-2007 meningococcal polysaccharide vaccine (MPSV4) Vince Munson DTP OPERATOR.PERSONAL CARE ASSISTANT Work Phone: [facility] 05-09-2007 yellow fever vaccine Vince Byrnesroz DTP OPERATOR.PERSONAL CARE ASSISTANT Work Phone: [facility] 05-21-2006 diphtheria antitoxin Vince Munson DTP OPERATOR.PERSONAL CARE ASSISTANT Work Phone: [facility] 05-21-2006 tetanus and diphther ia toxoids, adsorbed, preservative free, for adult use (2 Lf of tetanus toxoid and 2 Lf of diphtheria toxoid) Vince Munson DTP OPERATOR.PERSONAL CARE ASSISTANT Work Phone: [facility] 10-27-1999 hepatitis A vaccine, unspecified formulation Vince Ernestoroz DTP OPERATOR.PERSONAL CARE ASSISTANT Work Phone: [facility] 12-22-1998 hepatitis A vaccine, unspecified formulation Vincetayo Orozcoroz DTP OPERATOR.PERSONAL CARE ASSISTANT Work Phone: [facility] 06-08-1997 diphtheria antitoxin Vince Munson DTP OPERATOR.PERSONAL CARE ASSISTANT Work Phone: [facility] 06-08-1997 tetanus and diphther ia toxoids, adsorbed, preservative free, for adult use (2 Lf of tetanus toxoid and 2 Lf of diphtheria toxoid) Vince Munson DTP OPERATOR.PERSONAL CARE ASSISTANT Work Phone: [facility] 02-24-1988 diphtheria antitoxin Vince Munson DTP OPERATOR.PERSONAL CARE ASSISTANT Work Phone: [facility] 02-24-1988 tetanus and diphther ia toxoids, adsorbed, preservative free, for adult use (2 Lf of tetanus toxoid and 2 Lf of diphtheria toxoid) Vince Pendlebury DTP OPERATOR.PERSONAL CARE ASSISTANT Work Phone: [facility] Payers Date Payer Category Payer Self-pay [id number] 2022 Medicare MEDICARE MEDICAR E A AND B [id number] 2022-Present [phone] [place] [address] Medicare [id number] 2022 Medicare [id number] 2022 Private Health Insurance [facility] AARP SUPPLEMENT [id number] 2022-Present [phone] [address] [place] [address] Indemnity [id number] 2022 Unknown [id number] 2004 Unknown [id number] Unknown [id number] Unknown [id number] Social History Date Type Detail Facility [facility] Work Phone: Start: 1955 Sex Assigned At Female [facility] Start: 05-27-2013 [facility] Never smoked tobacco [facility] Start: 02-27-2023 Alcohol intake Current non-dr pay per click strategist of alcohol (finding) [facility] Start: 02-27-2023 History of Social function [facility] Start: 02-27-2023 Tobacco use panel [facility] Start: 1955 Sex Assigned At Not on file [facility] Tobacco smoking stat [facility] Unknown if ever smoked [facility] Work Phone: Start: 07-08-2024 Sex Female (finding) [facility] Progress note 02-27-2023 Note Date & Type Note Facility 02-27-2023 Note HNO ID: [id number] Author: Vince Munson APRN.PERSONAL CARE ASSISTANT Service: ? Author Type: Nurse Practitioner Type: [...] Procedure Laterality Date PAST SURGICAL HISTORY OF [place] tooth extraction ALLERGIES Patient has no known [...] anticipated. The pat (more content not included)... [facility] History of Present illness Narrative 02-27-2023 Vince Munson APRN.PERSONAL CARE ASSISTANT - 02/27/2023 2:33 PM EST Note Date [...] Procedure Laterality Date PAST SURGICAL HISTORY OF [place] tooth extraction ALLERGIES Patient has no known [...] of care. This note was generated using Skyp[employer] software. It may contain errors in wording, punctuation, or spelling. Vince Munson APRN.PERSONAL CARE ASSISTANT documented in this encounter [facility] Clinical Note 09-23-2021 Note Date & Type Note Facility 09-23-2021 Note [facility] Work Phone: Pap Smear Specimen Adequacy September 23, 2021 10:00am Comment . Satisfactory for evaluation. Endocervical and/or squamous metaplasticcells (endocervical component) are present. Comment on above: Satisfactory for otilia luation. Endocervical and/or squamous metaplasticcells (endocervical component) are present. Evaluation note Note Date & Type Note Facility Evaluation note No assessment information availa ble [facility] Work Phone: Evaluation note Note Date & Type Note Facility Evaluation note Diagnosis Sore throat- Primary Acute pharyngitis documented in this encounter [facility] Reason for referral (narrative) Note Date & Type Note Facility Reason for referral (narrative) No reason for referral information available [facility] Work Phone: Advance Directives Advance Directive Response Recorded Date/ Time Living Will Yes September 07, 2014 8 :16am Power of Boulevard Glassware Replacer Yes September 07, 2014 8:16am Advance Directive Response Recorded Date/ Time Living Will Yes September 07, 2014 7 :16am Power of Boulevard Glassware Replacer Yes September 07, 2014 7:16am Chief Complaint and Reason for Visit Chief Complaint SCREENING Chief Complaint Other abnormal and i nconclusive findings on diagno Chief Complaint Admit Date SCREENING WITH DENSE BREAST June 27 1:14pm Summary Purpose Family History No Family History Records FoundNo Family History Records Found Additional Source Comments Goals (unrecognized section and content) Goals may be documented in a n alternate sectionGoals may be documented in an alternate sectionGoals may be documented in an alternate sectionGoals may be documented in an alternate section Source Comments (unrecognize d section and content) In the event this informatio n is protected by the Federal Confidentiality of Alcohol and Drug Abuse Patient Records regulations: The Federal rules restrict any use of the information to criminally investigate or prosecute any alcohol or drug abuse patient.[facility] Reason for Visit (unrecogniz ed section and content) Reason Comments Sore Throat X 4 days, congestion , fever last night Care Teams (unrecognized sec tion and content) Underwriting Clerk Relationship Specialty Start Date End Date Anna Norton MD [address] [facility] [place] [address] PCP - General Family Medicine 02/27/23 Team Status: Active Member Role Status Dates Dr. Anna Norton MD Primary Care Provider Active Team Status: Inactive Member Role Status Dates Dr. Anna Norton MD Primary Care Prov ider, Attending Provider, Referring Provider Active Team Status: Inactive Member Role Status Dates Dr. Anna Norton MD Primary Care Provider Active Start: June 27, 2024 End: June 27, 2024 Dr. Anna Norton MD Attending Provider Active Start: June 27, 2024 End: June 27, 2024 Dr. Anna Norton MD Referring Provider Active Start: June 27, 2024 End: June 27, 2024 INFORMATION SOURCE (unrecogn ized section and content) DATE CREATED AUTHOR 03/01/2023 [facility] DATE CREATED AUTHOR AUTHOR'S ORGANIZ ATION 07/10/2024 [facility] FOR RECORDS PERTAINING TO PATIENTS WHO ARE [...] BE BASED ON THE PRIMARY CLINICAL RECORDS. [employer] provides no warranty or guarantee of the accuracy or completeness of information in this document.
[2024-11-21 14:21] LABS: Anion Gap 11 (5-15); BUN 14 mg/dL (4-19); BUN/Creat Ratio 17.4 RATIO (10-20); Calcium,Total 9.5 mg/dL (7.6-11.0); Carbon Dioxide 26.9 mmol/L (21.0-32.0); Chloride 104 mmol/L (98-108); Cholesterol 183 mg/dL (<=200); Glucose 80 mg/dL (70-99); Low Density Lipoprotein Calc. 75 mg/dL; Potassium 4.3 mmol/L (3.3-5.1); Triglycerides 72 mg/dL; Very Low Density Lipoprotein 14 mg/dL (5-40); Vitamin D,25 Hydroxy 46.6 ng/mL (30-100); cholesterol:hdl ratio screen 1.95
== END | disposition home or self-care (01) ==
LOC: MTLAB 09:49
PROVIDERS: PCP Family Medicine; Referring Provider Family Medicine; Visit Provider Family Medicine
DX: M81.0 Age-related osteoporosis without current pathological fracture (principal); K59.00 Constipation, unspecified; R53.83 Other fatigue; E55.9 Vitamin D deficiency, unspecified
CPT/HCPCS: 36415; 80048; 80061; 82306; 84443; 85025

== ENCOUNTER → 2024-11-27 | Outpatient (CLI) | payer MEDICARE, OTHER, SELFPAY ==
--- NOTE | 2024-11-27 15:28 | BI_ITS ---
EXAM: SCRN MAMM (CAD)W/LUDY BILAT DATE: 11/27/2024 CLINICAL HISTORY: F, Age 69 y/o , SCREENING TECHNIQUE: SCRN MAMM (CAD)W/LUDY BILAT COMPARISON: Prior exam(s) were compared FINDINGS: TISSUE DENSITY: The breasts are extremely dense, which lowers the sensitivity of mammography. Bilateral Breast Mammographic Findings: No suspicious masses, calcifications or other abnormalities are identified. BI/SCRN MAMM (CAD)W/LUDY BILAT IMPRESSION: No mammographic evidence of malignancy in either breast OVERALL FINAL ASSESSMENT BI-RADS 1: NEGATIVE. RECOMMENDATION: Routine annual follow-up in 1 Year A letter with findings and recommendations will be mailed to the patient. Reading Location: [id number]
== END | disposition home or self-care (01) ==
PROVIDERS: PCP Family Medicine; Referring Provider Family Medicine; Visit Provider Family Medicine
DX: Z12.31 Encounter for screening mammogram for malignant neoplasm of breast (principal); M81.0 Age-related osteoporosis without current pathological fracture
CPT/HCPCS: 77063; 77067

== ENCOUNTER → 2024-12-04 | Outpatient (CLI) | payer MEDICARE, OTHER, SELFPAY ==
--- NOTE | 2024-12-04 14:03 | BD_ITS ---
PROCEDURE: DEXA BONE DENSITY STUDY 12/04/2024 REASON FOR EXAM: F, age 69 y/o . Postmenopausal. TECHNIQUE: DEXA BONE DENSITY STUDY COMPARISON: Prior study dated November 16, 2022 FINDINGS: BMD and T-SCORES Lumbar spine: 0.748 g/cm2, T-score -2.7 Levels: L1 through L4 Loss of 5.3% Left femoral neck: 0.658 g/cm2, T-score -1.7 Femoral neck comparison data not recommended for monitoring change. Left total hip: 0.614 g/cm2, T-score -2.7 Change from prior: Loss of 7.7%. Right femoral neck: 0.627 g/cm2, T-score -2.0 Femoral neck comparison data not recommended for monitoring change. Right total hip: 0.607 g/cm2, T-score -2.7 Change from prior: Loss of 6.3%. The World Health Organization has defined the following categories based on bone density: Normal bone density: T-score equal to or greater than -1.0 Osteopenia: T-score between -1.0 and -2.5 Osteoporosis: T-score equal to or less than -2.5 The patient does meet the pharmacological treatment recommendations for prevention of osteoporosis. BD/Dexa Bone Density Study IMPRESSION: OSTEOPOROSIS. Recommend follow-up as clinically warranted. Reading Location: [place] [address]
== END | disposition home or self-care (01) ==
LOC: OPBD 14:02
PROVIDERS: PCP Family Medicine; Referring Provider Family Medicine; Visit Provider Family Medicine
DX: M81.0 Age-related osteoporosis without current pathological fracture (principal)
CPT/HCPCS: 77080

== ENCOUNTER 2025-01-27 06:27 | Day surgery (SDC) | payer MEDICARE, OTHER, SELFPAY ==
[2025-01-27] VITALS (7 sets, daily range): BP systolic 93–122; BP diastolic 6–77; PULSE 56–80; RESP 16; TEMP 36.4–36.6; O2SAT 99–100; BMI 17.1
--- NOTE | 2025-01-27 06:47 | PRE.ANES_ITS ---
ASA Classification* ASA Classification ASA Classification: 2 Assessment & Plan Anesthesia* Anesthesia Assessment Anesthesia Assessment: Discussed sedation and/or anesthesia options, risks, benefits, and alternatives with patient/parents/legal guardian/POA. Questions invited. The patient/parents/legal guardian/POA seems to understand and agrees to proceed with anesthesia plan. Reviewed the physical assessment, medical history, allergy history and patient home medications list prior to surgery/procedure/anesthetic and documented any changes. Performed airway and anesthesia risk assessments. Anesthesia Type Anesthesia Type: General Anesthesia Focused Assessment* Temperature: 97.6 F Pulse Rate: 80 Blood Pressure: 122/77 Respiratory Rate: 16 Pulse Ox: 99 Airway Assessment Mouth opens: >3 cm Mallampati Score: II Labs Anesthesia Preop lab: CBC WBC, (4.4-11.0) 3.5 K/mm3 L 11/21/24, 09:52 RBC, (4.2-5.4) 4.26 M/mm3 11/21/24, 09:52 Hgb, (12.0-15.0) 13.0 g/dL 11/21/24, 09:52 Hct, (37-47) 40.2 % 11/21/24, 09:52 Plt Count, (150-450) 181 K/mm3 11/21/24, 09:52 CHEMISTRY Potassium, (3.3-5.1) 4.3 mmol/L 11/21/24, 09:52 Sodium, (133-145) 142 mmol/L 11/21/24, 09:52 BUN, (4-19) 14 mg/dL 11/21/24, 09:52 Creatinine, (0.70-1.20) 0.80 mg/dL 11/21/24, 09:52 Glucose, (70-99) 80 mg/dL 11/21/24, 09:52 TSH, (0.300-4.200) 1.190 uIU/mL 11/21/24, 09:52 COAG Pre-Assessment Diagnosis/Proposed Procedure Planned Operative Procedure(s): Colonoscopy - Open Access Anesthesia History 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 When Was Last Pacemaker Check QUESTION #4 FULL TEXT: You/Your Family Experience fever (hyperthermia) with Anesthesia Last Oral Intake Last Oral intake: Last Oral Intake NPO since 00:00 01/27/25 06:42 Meds taken in AM with sips of water? Meds patient instructed to take am of surgery PONV PONV - paving stone installer: PONV - paving stone installer Female Yes 01/22/25 13:11 HX of Motion Sickness No 01/22/25 13:11 HX of N/V After Surgery No 01/22/25 13:11 Non-Smoker Yes 01/22/25 13:11 Duration of Surgery greater No 01/22/25 13:11 than 60 minutes Number of Risk Factors 2 01/22/25 13:11 PONV Score Moderate Risk 01/22/25 13:11 Height & Weight Height & Weight: Anesthesia: Height & Weight Height 5 ft 6 in 01/27/25 06:42 Weight: 48.081 kg 01/27/25 06:42 Body Mass Index (BMI) 17.1 01/27/25 06:42 Respiratory Assessment Respiratory Assessment - paving stone installer: Respiratory Tract Infection Hx - paving stone installer Hx Respiratory Tract Infection No 01/22/25 13:11 STOP Sleep Apnea STOP Sleep Apnea - paving stone installer: STOP Sleep Apnea - paving stone installer Hx Hypertension No 01/22/25 13:11 Hx Sleep Apnea No 01/22/25 13:11 CPAP BIPAP Do you snore loudly (louder No 01/22/25 13:11 than talking or can be heard Do you often feel tired/ No 01/22/25 13:11 fatigued/ sleepy during daytime? Has anyone observed you stop No 01/22/25 13:11 breathing during sleep? STOP Results Negative 01/22/25 13:11 QUESTION #5 FULL TEXT : Do you snore loudly (louder than talking or can be heard through closed doors)? Tobacco Use History Tobacco Use History - paving stone installer: Tobacco Use History - paving stone installer Tobacco Use Smoking Status Never smoker 01/22/25 13:11 Hx Tobacco Use No 01/22/25 13:11 Years Smoking Packs Smoked per Day Smoking Cessation Date was within the last 15 years Hx Smoking Cessation Date Hx Smoking Cessation Counseling Hematologic Medial History Hematologic Hx - paving stone installer: Hematologic Medical Hx - order expediter Hx of Blood Transfusion No 01/22/25 13:11 Hx of Transfusion in last 3 No 01/22/25 13:11 Months Date of Last Transfusion (if within last 3 months) Ever experience any problems No 01/22/25 13:11 with transfusion(s)? Specify any problems Hx of Preganancy in last 3 No 01/22/25 13:11 Months Nurse Filling Out Transfusion JZOLLINGE 01/22/25 13:11 & Questions: Date: 01/22/25 01/22/25 13:11 Time: 13:13 01/22/25 13:11 Patient unable to answer at this time (ie. confused, unrespo /Reproduction History /Reproductive History - paving stone installer: /Reproductive Hx- paving stone installer Hx Now No 01/22/25 13:11 Gestational Age (in weeks): EDC: Hx Hx Para Hx Section SAB No 01/22/25 13:11 Active Medications Active Medications: Current Medications Generic Name Dose Route Start Last Admin Trade Name Freq PRN Reason Stop Dose Admin Lactated Ringer's 1,000 mls @ 15 mls/hr 01/27/25 06:45 IV .Q48H [place] PFSH Medical History Wears glasses Wears contact lenses Back pain Migraine headache Non-smoker Home Medications ?Medication ?Instructions ?Recorded ?Last Taken ?Type Zolmitriptan [Zomig] 2.5 mg PO .X1 PRN 09/07/14 U nknown History calcium carbonate 1,200 mg PO DAILY 09/07/14 U nknown History cholecalciferol (vitamin D3) 25 1,000 unit PO DAILY Unknown History mcg (1,000 unit) tablet (Vitamin D3) imipramine HCl 50 mg tablet 100 mg PO QHS 09/07/1410/15 History (Tofranil) Allergy/AdvReac Type Severity Reaction Status Date / Time No Known Allergies Allergy Verified 10/07/25 06:41 Surgical History Hx of colonoscopy Social History Smoking Status: Never smoker Review of Systems (Anesthesia) ROS Narrative System reviewed and no additional complaints, except as documented.
[2025-01-27] MEDS: Lactated Ringers 1,000 ML 15 ML IV (06:48)
--- NOTE | 2025-01-27 07:28 | PCM.HP.STD ---
HPI - General General Date of Admission: 01/27/25 Date of Service: 01/27/25 Chief Complaint: Screening colonoscopy HPI Narrative PIETER OTLLIVER, is a 69 F who presents for screening colonoscopy. Her last colonoscopy was about 10 years ago. She has never had any polyps. She denies any family history of colon polyps or colon cancers. She denies any current GI symptoms or problems. [facility] Medical History Screening for colon cancer Wears glasses Wears contact lenses Back pain Migraine headache Non-smoker Home Medications ?Medication ?Instructions ?Recorded ?Last Taken ?Type Zolmitriptan [Zomig] 2.5 mg PO .X1 PRN 09/07/14 Unknown History calcium carbonate 1,200 mg PO DAILY 09/07/14 Unknown History cholecalciferol (vitamin D3) 25 1,000 unit PO DAILY 09/07/14 Unknown History mcg (1,000 unit) tablet (Vitamin D3) imipramine HCl 50 mg tablet 100 mg PO QHS 09/07/14 01/26/25 History (Tofranil) Allergy/AdvReac Type Severity Reaction Status Date / Time No Known Allergies Allergy Verified 01/27/25 06:41 Surgical History Hx of colonoscopy Social History Smoking Status: Never smoker Vital Signs Vital Signs Vital Signs: 01/27/25 06:42 01/27/25 06:42 01/27/25 06:48 Temperature 97.6 F L 97.6 F L Temperature Source Temporal Pulse Rate 80 80 Respiratory Rate 16 16 Respiratory Pattern Normal Blood Pressure 122/77 H 122/77 H Blood Pressure Mean 92 Blood Pressure Source Monitor Blood Pressure Position Sitting Blood Pressure Location Left Arm Pulse Ox 99 99 Oxygen Delivery Method Room Air Weight Weight: 106 lb Body Mass Index (BMI) 17.1 Physical Exam Const alert, oriented x3 and no apparent distress Assessment & Plan Assessment/Plan (1) Screening for colon cancer: PLAN: Plan Patient is a 69-year-old female who presents today for screening colonoscopy. Her last colonoscopy was 10 years ago. We discussed the details of the planned procedure including the risks benefits and alternatives. She wishes to proceed. Procedure will begin momentarily.
--- NOTE | 2025-01-27 08:30 | OP.PROVAT_ITS ---
01/27/2025 Anna Norton [place] [address] [address] Re : Colonoscopy procedure for Kendra Otto Dear Dr. Norton This procedure was performed on Monday, January 27, 2025. My impressions and recommendations are as follows: Impressions : - Preparation of the colon was fair. - There was significant looping of the colon. - The examination was otherwise normal. - No specimens collected. Recommendations : - Discharge patient to home (ambulatory). - High fiber diet. - Repeat colonoscopy in 10 years for screening purposes. - Return to my office PRN. - Continue present medications. My findings are described in the full procedure note, which is enclosed. If I can be of further assistance, please feel free to contact me at . Sincerely, Shemar Beasley MD 01/27/2025 8:29:44 AM This report has been signed electronically.
--- NOTE | 2025-01-27 08:30 | OP.COLON_ITS ---
Patient Name: Kendra Otto Procedure Date: 01/27/2025 7:24 AM Date of : 1955 Age: 69 Procedure: Colonoscopy Indications: Screening for colorectal malignant neoplasm Providers: Shemar Beasley MD Referring MD: Anna Norton Medicines: Monitored Anesthesia Care Patient Profile: Refer to note in patient chart for documentation of history and physical. Last Colonoscopy: 10 years ago. Complications: No immediate complications. Estimated blood loss: None. Procedure: Pre-Anesthesia Assessment: - Prior to the procedure, a History and Physical was performed, and patient medications and allergies were reviewed. The patient's tolerance of previous anesthesia was also reviewed. The risks and benefits of the procedure and the sedation options and risks were discussed with the patient. All questions were answered, and informed consent was obtained. Prior Anticoagulants: The patient has taken no anticoagulant or antiplatelet agents. ASA Grade Assessment: II - A patient with mild systemic disease. After reviewing the risks and benefits, the patient was deemed in satisfactory condition to undergo the procedure. After I obtained informed consent, the scope was passed under direct vision. Throughout the procedure, the patient's blood pressure, pulse, and oxygen saturations were monitored continuously. The adult colonoscope was introduced through the anus and advanced to the cecum, identified by appendiceal orifice and ileocecal valve. The ileocecal valve, appendiceal orifice, and rectum were photographed. The entire colon was visualized. The colonoscopy was performed with moderate difficulty due to a tortuous colon. Successful completion of the procedure was aided by changing the patient to a supine position. The patient tolerated the procedure well. The quality of the bowel preparation was fair. Moderate Sedation: See the other procedure note for documentation of moderate sedation with intraservice time. Scope In: 7:38:48 AM Scope Withdrawal Time 0 hours 9 minutes 4 seconds Scope Out: 8:22:37 AM Total Procedure Duration Time 0 hours 43 minutes 49 seconds Findings: The perianal and digital rectal examinations were normal. The colon (entire examined portion) revealed significantly excessive looping. The exam was otherwise without abnormality. Impression: - Preparation of the colon was fair. - There was significant looping of the colon. - The examination was otherwise normal. - No specimens collected. Recommendation: - Discharge patient to home (ambulatory). - High fiber diet. - Repeat colonoscopy in 10 years for screening purposes. - Return to my office PRN. - Continue present medications. Procedure Code(s): --- Professional --- 67046, Colonoscopy, flexible; diagnostic, including collection of specimen(s) by brushing or washing, when performed (separate procedure) Diagnosis Code(s): --- Professional --- Z12.11, Encounter for screening for malignant neoplasm of colon CPT copyright 2021 [employer]. All rights reserved. The codes documented in this report are preliminary and upon cut off machine operator review may be revised to meet current compliance requirements. Shemar Beasley MD 01/27/2025 8:29:44 AM This report has been signed electronically. Number of Addenda: 0 Note Initiated On: 01/27/2025 7:24 AM
--- NOTE | 2025-01-27 08:34 | PCM.POST.ANE ---
Anesthesia: Postop Eval I Current Vital Signs Temperature: 97.9 F Pulse Rate: 60 Blood Pressure: 96/63 Respiratory Rate: 16 Pulse Ox: 100 Oxygen Delivery Method: Room Air Assessment Airway patent: Yes Spontaneous unlabored respirations: Yes Mental status: Asleep nausea: No Vomiting: No Anesthesia Complication: No Fluid Hydration Crystalloid volume administer (ml): 800 Total IV fluid infused: 800 Progress Note Anesthesia document: Postop Eval 1 completed: Yes
--- NOTE | 2025-01-27 11:44 | PCM.POSTANE2 ---
Anesthesia Postop Eval I Sum Postop Eval Completion status Anesthesia document: Postop Eval 1 completed: Yes Anesthesia Postop Eval I Summary Anesthesia Postop Eval I Summary: Anesthesia Postop Eval I: Assessment Summary Airway patent Yes 01/27/25 08:35 [email or web address] Spontaneous unlabored Yes 01/27/25 08:35 [email or web address] respirations Mental status Asleep 01/27/25 08:35 [email or web address] nausea No 01/27/25 08:35 [email or web address] Vomiting No 01/27/25 08:35 [email or web address] Anesthesia Postop Eval I: Fluid Summary Crystalloid volume administer 800 01/27/25 08:35 [email or web address] (ml) Colloids volume administered ( ml) Blood Product volume administered (ml) Total IV fluid infused 800 01/27/25 08:35 [email or web address] Anesthesia Postop Eval I: Summary Notes Anesthesia Complication No 01/27/25 08:35 [email or web address] Anesthesia Complication Comment: Post-operative progress note Anesthesia: Postop Eval II Evaluation Mental status: Awake Pain Level: 0 nausea: No Vomiting: No
== END 2025-01-27 09:14 | disposition home or self-care (01) ==
LOC: EN 06:28 → AC 06:28
PROVIDERS: PCP Family Medicine; Referring Provider Family Medicine; Visit Provider Surgery
PROC: 0DJD8ZZ Inspection of Lower Intestinal Tract, Via Natural or Artificial Opening Endoscopic (ICD-10-PCS; CPT 45378; principal; 2025-01-27 07:25)
DX: Z12.11 Encounter for screening for malignant neoplasm of colon (principal); G43.909 Migraine, unspecified, not intractable, without status migrainosus; Z79.899 Other long term (current) drug therapy
CPT/HCPCS: G0121; J2405